=== PATIENT | male | born 2000 | race Caucasian/White ===

== ENCOUNTER 2022-08-13 04:23 | Emergency (ER) | payer OTHER ==
[2022-08-13 04:27] VITALS: RESP 18
[2022-08-13] MEDS ORDERED: PROCHLORPERAZINE 5 MG TAB PO STA (05:15)
[2022-08-13] MEDS ORDERED: ACETAMINOPHEN TAB 500 MG TAB PO STA (05:15)
[2022-08-13] MEDS ORDERED: AMOXIC-POT CLAV 875-125MG 1 EACH TAB PO STA (05:15)
[2022-08-13] MEDS ORDERED: IBUPROFEN 800 MG TAB PO STA (05:15)
--- NOTE | 2022-08-13 05:17 | ED ---
Headache HPI - General Chief Complaint: Headache Stated Complaint: Headache Time Seen by Provider: 08/13/22 05:05 Source: RN notes reviewed, old records reviewed Mode of arrival: ambulatory Limitations: no limitations - History of Present Illness Initial Comments: This is a 20-year-old male DF for evaluation patient comes in for severe headache headache that woke him from sleep, he was doing research and was concerned of cause of headache. Patient's headache is started today history of sinus illness no medical history takes no medications. No fevers. Patient has no modifying factors for headaches is not take any medication at home patient's brought in the ER as per mother he was having a panic attack secondary to his headache while he was at home. Patient states headache is mildly improved here in the ER no nausea vomiting, patient is able to move and turn his head in all directions MD Complaint: headache -: hour(s) Onset Description: gradual Location: right, left, frontal, occipital Severity: mild Severity scale (1-10): 4 Quality: aching, throbbing Consistency: intermittent Improves With: nothing Worsens With: none Context: occurred at rest Treatments Prior to Arrival: none - Related Data Allergies Allergy/AdvReac Type Severity Reaction Status Date / Time latex Allergy Rash/Hives Verified 08/13/22 04:26 Review of Systems ROS Statement: Those systems with pertinent positive or pertinent negative responses have been documented in the HPI. ROS Other: All systems not noted in ROS Statement are negative. Past Medical History Additional Past Medical History / Comment(s): Metabolic hx History of Any Multi-Drug Resistant Organisms: None Reported Past Surgical History: No Surgical Hx Reported Past Psychological History: No Psychological Hx Reported Smoking Status: Current every day smoker Past Alcohol Use History: Occasional Past Drug Use History: None Reported General Exam Limitations: no limitations General appearance: alert, in no apparent distress Head exam: Present: atraumatic, normocephalic, normal inspection Eye exam: Present: normal appearance, PERRL, EOMI. Absent: scleral icterus, conjunctival injection, periorbital swelling ENT exam: Present: normal exam, mucous membranes moist, other (Patient does have tenderness over sinuses) Neck exam: Present: normal inspection. Absent: tenderness, meningismus, lymphadenopathy Respiratory exam: Present: normal lung sounds bilaterally. Absent: respiratory distress, wheezes, rales, rhonchi, stridor Cardiovascular Exam: Present: regular rate, normal rhythm, normal heart sounds. Absent: systolic murmur, diastolic murmur, rubs, gallop, clicks GI/Abdominal exam: Present: soft, normal bowel sounds. Absent: distended, te nderness, guarding, rebound, rigid Extremities exam: Present: normal inspection, full ROM, normal capillary refill. Absent: tenderness, pedal edema, joint swelling, calf tenderness Back exam: Present: normal inspection Neurological exam: Present: alert, oriented X3, CN II-XII intact Psychiatric exam: Present: normal affect, normal mood Skin exam: Present: warm, dry, intact, normal color. Absent: rash Course Vital Signs 08/13/22 04:24 Temperature 97.4 F L Pulse Rate 87 Respiratory 18 Rate Blood Pressure 138/92 O2 Sat by Pulse 97 Oximetry - Reevaluation(s) Reevaluation #1: 08/13/22 05:44 Medical records reviewed Reevaluation #2: 08/13/22 05:44 Headache is improved Reevaluation #3: 08/13/22 05:44 Patient informed of results and questions answered Medical Decision Making - Medical Decision Making 22 male to the emergency department for evaluation patient coming in for evaluation of headache does appear to have sinus headache symptoms tenderness over sinuses and diffuseness of headache. Patient is in no acute distress can be discharged home - Radiology Data Radiology results: report reviewed (CT brain negative for acute disease), image reviewed Disposition Clinical Impression: Sinusitis, Sinus headache Disposition: HOME SELF-CARE Condition: Good Instructions (If sedation given, give patient instructions): Sinusitis (ED), Acute Headache (ED), Allergies (ED) Is patient prescribed a controlled substance at d/c from ED?: No Referrals: None,Stated [Primary Care Provider] - 1-2 days Time of Disposition: 05:45
--- NOTE | 2022-08-13 05:39 | CT ---
EXAMINATION TYPE: CT brain wo con DATE OF EXAM: 08/13/2022 COMPARISON: None HISTORY: HEADACHE CT DLP: 1138.9 mGycm Automated exposure control for dose reduction was used. Images obtained of the brain with no contrast. Ventricles and sulci appear normal. There is no mass effect or midline shift. No sign of intracranial hemorrhage. Calvarium is intact. No evidence of cerebral edema. There is normal aeration of the mast oid sinuses. IMPRESSION: Negative unenhanced head CT scan.
[2022-08-13 06:45] VITALS: BP 126/73; PULSE 63; TEMP 97.6
== END 2022-08-13 06:46 | disposition home or self-care (01) ==
LOC: EC 04:23
DX: J32.9 Chronic sinusitis, unspecified (principal); F17.200 Nicotine dependence, unspecified, uncomplicated; Z91.040 Latex allergy status
CPT/HCPCS: 70450; 99284; S0183

== ENCOUNTER 2022-08-14 13:10 | Emergency (ER) | payer OTHER ==
[2022-08-14] MEDS ORDERED: LIDOCAINE 5% PATCH TOPICAL STA (17:01)
[2022-08-14] MEDS ORDERED: KETOROLAC 15 MG/ML 1 ML VIAL IM STA (17:02)
[2022-08-14] MEDS ORDERED: methylPREDNISolone SOD SUCCI 125 MG/2 ML VIAL IM ONE (17:03)
[2022-08-14] MEDS ORDERED: CYCLOBENZAPRINE 5 MG TAB PO STA (17:03)
[2022-08-14] MEDS ORDERED: hydrOXYzine HCL 25 MG TAB PO STA (17:27)
[2022-08-14 18:01] VITALS: PULSE 72
--- NOTE | 2022-08-14 19:06 | ED ---
Neck Injury/Pain HPI - General Chief Complaint: Neck Pain/Injury Stated Complaint: neck pain Time Seen by Provider: 08/14/22 16:34 Mode of arrival: ambulatory Limitations: no limitations - History of Present Illness Initial Comments: This is a 22-year-old male who presents to the emergency department with a chief complaint of neck pain and headache. Patient woke up with the pain on Monday. Denies injury. Describes it as an aching. Pain is worse with movement of the neck both ways. He intermittently feels numbness in his fingers bilaterally as well as a "hot sensation in his arms." He has not taken anything for the pain. Patient presented in the emergency department yesterday for these complaints. CT brain without contrast was performed which was reviewed by me, negative for acute process. Patient reports no change in neck pain and headache. Does admit to nasal congestion. Denies fever, chills, cough, shortness of breath, chest pain, nausea, vomiting. Patient's mother did pull me aside and states the patient has been having issues with anxiety lately. Mother feels that numbness and hot flashes are related to panic attacks. Patient mother recently moved to the area and are waiting for first primary care appointment. Patient currently experiencing grief from the of his grandpa. I discussed this with patient in detail who does admit to anxiety. - Related Data Previous Rx's Medication Instructions Recorded Cyclobenzaprine [Flexeril] 5 mg PO HS PRN #10 tab 08/14/22 Ibuprofen [Motrin] 800 mg PO Q8H PRN #30 tab 08/14/22 Lidocaine 5% Patch [Lidoderm 5% 1 patch TOPICAL DAILY PRN #7 patch 08/14/22 Patch] hydrOXYzine HCL [Atarax] 25 mg PO BID PRN #28 tab 08/14/22 Allergies Allergy/AdvReac Type Severity Reaction Status Date / Time latex Allergy Rash/Hives Verified 08/14/22 13:25 Review of Systems ROS Statement: Those systems with pertinent positive or pertinent negative responses have been documented in the HPI. ROS Other: All systems not noted in ROS Statement are negative. Past Medical History Additional Past Medical History / Comment(s): Metabolic hx History of Any Multi-Drug Resistant Organisms: None Reported Past Surgical History: No Surgical Hx Reported Past Psychological History: No Psychological Hx Reported Smoking Status: Current every day smoker Past Alcohol Use History: Occasional Past Drug Use History: None Reported General Exam Limitations: no limitations General appearance: alert, in no apparent distress Head exam: Present: atraumatic, normocephalic, normal inspection Eye exam: Present: normal appearance, PERRL, EOMI. Absent: scleral icterus, conjunctival injection, periorbital swelling Neck exam: Present: normal inspection, tenderness (paravertebral), full ROM. Absent: meningismus, lymphadenopathy, thyromegaly Respiratory exam: Present: normal lung sounds bilaterally. Absent: respiratory distress, wheezes, rales, rhonchi, stridor Cardiovascular Exam: Present: regular rate, normal rhythm, normal heart sounds. Absent: systolic murmur, diastolic murmur, rubs, gallop, clicks Neurological exam: Present: alert, oriented X3, CN II-XII intact Psychiatric exam: Present: normal affect, anxious. Absent: normal mood Course Vital Signs 08/14/22 08/14/22 08/14/22 13:23 18:01 19:17 Temperature 98.9 F 98.3 F 98.1 F Pulse Rate 79 72 72 Respiratory 20 16 17 Rate Blood Pressure 142/78 134/92 128/72 O2 Sat by Pulse 97 99 98 Oximetry Medical Decision Making - Medical Decision Making This is a 22-year-old presenting with neck pain. Symptoms and physical exam consistent with musculoskeletal origin. Patient given Toradol, muscle relaxer, lidocaine patch. On reevaluation he reports very minimal pain. Patient feeling much better. I also discussed anxiety with patient in detail who was willing to trial hydroxyzine. This was given and provided anxiety relief. Patient does not have suicidal or homicidal ideation. He is not a threat to himself or others. He will be discharged with symptomatic medication for neck pain and hydroxyzine for anxiety. This should help him until he is able to see his new primary care provider. Patient currently living with mother who will watch him closely. Return parameters discussed. Dr. Garnett is my attending. - Lab Data Lab Results 08/14/22 08/14/22 Range/Units 17:52 17:52 Coronavirus (PCR) Not Detected (Not Detectd) Influenza Type A RNA Not Detected (Not Detectd) Influenza Type B (PCR) Not Detected (Not Detectd) Disposition Clinical Impression: Anxiety, Panic attack, Neck pain, Body aches Disposition: HOME SELF-CARE Condition: Good Instructions (If sedation given, give patient instructions): Panic Attack (ED), Acute Neck Pain (ED), Anxiolysis in Adults (ED) Additional Instructions: Take medication as directed. Please do not drink alcohol or operate machinery or taking Flexeril or hydroxyzine. Please establish care with a primary care provider as soon as possible. Return to the emergency department if you experience new, concerning, or worsening symptoms. Prescriptions: hydrOXYzine HCL [Atarax] 25 mg PO BID PRN #28 tab PRN Reason: Anxiety Cyclobenzaprine [Flexeril] 5 mg PO HS PRN #10 tab PRN Reason: Pain Lidocaine 5% Patch [Lidoderm 5% Patch] 1 patch TOPICAL DAILY PRN #7 patch PRN Reason: Pain Ibuprofen [Motrin] 800 mg PO Q8H PRN #30 tab PRN Reason: Pain Is patient prescribed a controlled substance at d/c from ED?: No Referrals: None,Stated [Primary Care Provider] - 1-2 days Time of Disposition: 19:06
[2022-08-14 19:18] VITALS: BP 128/72; RESP 17; TEMP 98.1
== END 2022-08-14 19:17 | disposition home or self-care (01) ==
LOC: EC 13:10
DX: F41.9 Anxiety disorder, unspecified (principal); F41.0 Panic disorder [episodic paroxysmal anxiety]; R52 Pain, unspecified; F17.200 Nicotine dependence, unspecified, uncomplicated; Z20.822 Contact with and (suspected) exposure to COVID-19; Z91.040 Latex allergy status
CPT/HCPCS: 87502; 87635; 99283; 96372 ×2; J2930; J1885

== ENCOUNTER 2023-02-11 15:31 | Emergency (ER) | payer OTHER ==
[2023-02-11 15:40] VITALS: TEMP 98
[2023-02-11] MEDS ORDERED: SODIUM CHLORIDE 0.9% 1,000 ML IV STA (16:25)
--- NOTE | 2023-02-11 16:55 | XR ---
EXAMINATION TYPE: XR chest 2V DATE OF EXAM: 02/11/2023 COMPARISON: NONE HISTORY: Chest pain TECHNIQUE: Frontal and lateral views of the chest are obtained. FINDINGS: There is no focal air space opacity. No evidence for pneumothorax. No pleural effusion. The cardiac silhouette size is within normal limits. The osseous structures are grossly intact. IMPRESSION: 1. No acute cardiopulmonary process.
[2023-02-11 17:02] LABS: Basophils % (A) 0 %; Eosinophils # (A) 0.1 k/uL (0-0.7); Eosinophils % (A) 1 %; HCT 37.8 % (39.0-53.0); HGB 13.2 gm/dL (13.0-17.5); Lymphocytes # (A) 0.9 k/uL (1.0-4.8); Lymphocytes % (A) 10 %; MCH 29.9 pg (25.0-35.0); MCV 85.4 fL (80.0-100.0); Mean Platelet Volume 8.9; Monocytes # (A) 0.4 k/uL (0-1.0); Monocytes % (A) 5 %; Neutrophils # (A) 7.3 k/uL (1.3-7.7); Neutrophils % (A) 82 %; Platelet Count 187 k/uL (150-450); RBC 4.43 m/uL (4.30-5.90); RDW 12.9 % (11.5-15.5); WBC 8.8 k/uL (3.8-10.6)
[2023-02-11 17:34] VITALS: BP 118/78; PULSE 97; RESP 18
[2023-02-11 17:36] LABS: ALT 58 U/L (4-49); African American GFR (CKD) >90 (>60 ml/min/1.73 sqM); Anion Gap 12 mmol/L; Blood Urea Nitrogen 14 mg/dL (9-20); Calcium 8.3 mg/dL (8.4-10.2); Carbon Dioxide 19 mmol/L (22-30); Chloride 108 mmol/L (98-107); Glucose 78 mg/dL (74-99); Non-African American GFR(CKD) >90 (>60 ml/min/1.73 sqM); Sodium 139 mmol/L (137-145); Total Bilirubin 1.2 mg/dL (0.2-1.3)
[2023-02-11 17:56] LABS: AST 58 U/L (17-59); Albumin 4.2 g/dL (3.5-5.0); Alkaline Phosphatase 92 U/L (38-126); Potassium 3.8 mmol/L (3.5-5.1)
--- NOTE | 2023-02-11 18:08 | ED ---
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 States that he has been outside all day in the sun without adequate hydration. He began feeling like he was going to pass out and EMS was called. They established an IV and gave him 750 mL of normal saline. Patient arrives and states that he is arty starting to feel improved. No chest pain or shortness of breath. No headache or visual changes. Admits nausea without vomiting. He denies abdominal pain. No other alleviating, precipitating or modifying factors - Related Data Previous Rx's Medication Instructions Recorded Cyclobenzaprine [Flexeril] 5 mg PO HS PRN #10 tab 08/14/22 Ibuprofen [Motrin] 800 mg PO Q8H PRN #30 tab 08/14/22 Lidocaine 5% Patch [Lidoderm 5% 1 patch TOPICAL DAILY PRN #7 patch 08/14/22 Patch] hydrOXYzine HCL [Atarax] 25 mg PO BID PRN #28 tab 08/14/22 Allergies Allergy/AdvReac Type Severity Reaction Status Date / Time latex Allergy Rash/Hives Verified 08/14/22 13:25 Review of Systems ROS Statement: Those systems with pertinent positive or pertinent negative responses have been documented in the HPI. ROS Other: All systems not noted in ROS Statement are negative. Past Medical History Additional Past Medical History / Comment(s): Metabolic hx History of Any Multi-Drug Resistant Organisms: None Reported Past Surgical History: No Surgical Hx Reported Past Psychological History: No Psychological Hx Reported Smoking Status: Current every day smoker Past Alcohol Use History: Occasional Past Drug Use History: None Reported General Exam Limitations: no limitations General appearance: alert, in no apparent distress Head exam: Present: atraumatic, normocephalic, normal inspection Eye exam: Present: normal appearance, PERRL, EOMI. Absent: scleral icterus, conjunctival injection, periorbital swelling ENT exam: Present: normal exam, mucous membranes moist Neck exam: Present: normal inspection. Absent: tenderness, meningismus, lymphadenopathy Respiratory exam: Present: normal lung sounds bilaterally. Absent: respiratory distress, wheezes, rales, rhonchi, stridor Cardiovascular Exam: Present: regular rate, normal rhythm, normal heart sounds. Absent: systolic murmur, diastolic murmur, rubs, gallop, clicks GI/Abdominal exam: Present: soft, normal bowel sounds. Absent: distended, tenderness, guarding, rebound, rigid Extremities exam: Present: normal inspection, full ROM, normal capillary refill. Absent: tenderness, pedal edema, joint swelling, calf tenderness Back exam: Present: normal inspection Neurological exam: Present: alert, oriented X3, CN II-XII intact Psychiatric exam: Present: normal affect, normal mood Skin exam: Present: warm, dry, intact, normal color. Absent: rash Course Vital Signs 02/11/23 02/11/23 15:35 17:33 Temperature 98 F Pulse Rate 87 97 Respiratory 22 18 Rate Blood Pressure 126/71 118/78 O2 Sat by Pulse 100 100 Oximetry Medical Decision Making - Medical Decision Making Was pt. sent in by a medical professional or institution ([facility] Chavez, HEAD BATCHER, urgent care, hospital, or [facility]...) When possible be specific @ -No Did you speak to anyone other than the patient for history (EMS, parent, family, police, friend...)? What history was obtained from this source @ -Patient's significant other at bedside to provide history Did you review nursing and triage notes (agree or disagree)? Why? @ -I reviewed and agree with nursing and triage notes Were old charts reviewed (outside hosp., previous admission, EMS record, old EKG, old radiological studies, urgent care reports/EKG's, [facility] records)? Report findings @ -No old charts were reviewed Differential Diagnosis (chest pain, altered mental status, abdominal pain women, abdominal pain men, vaginal bleeding, weakness, fever, dyspnea, syncope, he adache, dizziness, GI bleed, back pain, seizure, CVA, palpatations, mental health, musculoskeletal)? @ -Differential Syncope: Valvular disease, hypertrophic cardiomyopathy, pulmonary embolism, tamponade, tachycardia, bradycardia, [place], hypovolemia, hemorrhage, dissection, anemia, intracranial hemorrhage, seizure, hypoglycemia, carbon monoxide poisoning, this is not meant to be an all-inclusive list. EKG interpreted by me (3pts min.). @ -EKG interpreted demonstrates sinus rhythm with occasional PVCs. Rate of 79.OH interval 128. QRS 92. QTC of 431. No signs of Parkinson White or Brugada. No acute ST depression. There is some ST elevation in all leads consistent with J-point elevation X-rays interpreted by me (1pt min.). @ -Yes and demonstrates no acute intrathoracic process CT interpreted by me (1pt min.). @ -None done U/S interpreted by me (1pt. min.). @ -None done What testing was considered but not performed or refused? (CT, X-rays, U/S, labs)? Why? @ -None What meds were considered but not given or refused? Why? @ -None Did you discuss the management of the patient with other professionals (professionals i.e. , PA, HEAD BATCHER, lab, RT, psych nurse, social services director, barn hand, teacher, credit compliance officer, telehealth case manager)? Give summary @ -No Was smoking cessation discussed for >3mins.? @ -No Was critical care preformed (if so, how long)? @ -No Were there social determinants of health that impacted care today? How? (Homelessness, low income, unemployed, alcoholism, drug addiction, transportation, low edu. Level, literacy, decrease access to med. care, halfway, rehab)? @ -No Was there de-escalation of care discussed even if they declined (Discuss DNR or withdrawal of care, Hospice)? DNR status @ -No What co-morbidities impacted this encounter? (DM, HTN, Smoking, COPD, CAD, Cancer, CVA, ARF, Chemo, Hep., AIDS, mental health diagnosis, sleep apnea, morbid obesity)? @ -None Was patient admitted / discharged? Hospital course, mention meds given and route, prescriptions, significant lab abnormalities, going to OR and other pertinent info. @ -Upon arrival patient is placed in the hallway 11. A thorough history and physical exam is performed. IV access had been established by EMS. He is given another 2 L bolus of normal saline. Laboratory studies are conducted in the chest x-rays performed. Patient reevaluated and feels markedly improved at this time. He is able to sit and stand without feeling lightheaded. Patient will be discharged home and instructed to rest, increase fluid intake and stay out of the hot sun. Follow-up with his doctor in 2-4 days and return for any new or worsening symptoms. Patient was agreeable to this plan and was discharged home in stable condition Undiagnosed new problem with uncertain prognosis? @ -Yes Drug Therapy requiring intensive monitoring for toxicity (Heparin, Nitro, Insulin, Cardizem)? @ -No Were any procedures done? @ -No Diagnosis/symptom? @ -Presyncope, acute nausea, heat exhaustion Acute, or Chronic, or Acute on Chronic? @ -Acute Uncomplicated (without systemic symptoms) or Complicated (systemic symptoms)? @ -Complicated Side effects of treatment? @ -No Exacerbation, Progression, or Severe Exacerbation? @ -No Poses a threat to life or bodily function? How? (Chest pain, [place], NJ, pneumonia, PE, COPD, DKA, ARF, appy, cholecystitis, CVA, Diverticulitis, Homicidal, Suicidal, threat to staff... and all critical care pts) @ -No - Lab Data Result diagrams: 02/11/23 16:45 02/11/23 16:45 Lab Results 02/11/23 02/11/23 02/11/23 Range/Units 16:45 16:45 16:45 WBC 8.8 (3.8-10.6) k/uL RBC 4.43 (4.30-5.90) m/uL Hgb 13.2 (13.0-17.5) gm/dL Hct 37.8 L (39.0-53.0) % MCV 85.4 (80.0-100.0) fL MCH 29.9 (25.0-35.0) pg MCHC 35.0 (31.0-37.0) g/dL RDW 12.9 (11.5-15.5) % Plt Count 187 (150-450) k/uL MPV 8.9 Neutrophils % 82 % Lymphocytes % 10 % Monocytes % 5 % Eosinophils % 1 % Basophils % 0 % Neutrophils # 7.3 (1.3-7.7) k/uL Lymphocytes # 0.9 L (1.0-4.8) k/uL Monocytes # 0.4 (0-1.0) k/uL Eosinophils # 0.1 (0-0.7) k/uL Basophils # 0.0 (0-0.2) k/uL Sodium 139 (137-145) mmol/L Potassium 3.8 (3.5-5.1) mmol/L Chloride 108 H (98-107) mmol/L Carbon Dioxide 19 L (22-30) mmol/L Anion Gap 12 mmol/L BUN 14 (9-20) mg/dL Creatinine 0.66 (0.66-1.25) mg/dL Est GFR (CKD-EPI)AfAm >90 (>60 ml/min/1.73 sqM) Est GFR (CKD-EPI)NonAf >90 (>60 ml/min/1.73 sqM) Glucose 78 (74-99) mg/dL Calcium 8.3 L (8.4-10.2) mg/dL Total Bilirubin 1.2 (0.2-1.3) mg/dL AST 58 (17-59) U/L ALT 58 H (4-49) U/L Alkaline Phosphatase 92 (38-126) U/L Troponin I <0.012 (0.000-0.034) ng/mL Total Protein 7.0 (6.3-8.2) g/dL Albumin 4.2 (3.5-5.0) g/dL Disposition Clinical Impression: Heat exhaustion Disposition: HOME SELF-CARE Condition: Stable Instructions (If sedation given, give patient instructions): Heat Exhaustion (ED) Additional Instructions: Please follow-up with your doctor and return for any new or worsening symptoms Is patient prescribed a controlled substance at d/c from ED?: No Referrals: Prieto Sykes MD [Primary Care Provider] - 1-2 days Time of Disposition: 18:08
== END 2023-02-11 18:43 | disposition home or self-care (01) ==
LOC: EC 15:31
DX: T67.5XXA Heat exhaustion, unspecified, initial encounter (principal); F17.200 Nicotine dependence, unspecified, uncomplicated; Z91.040 Latex allergy status; X30.XXXA Exposure to excessive natural heat, initial encounter
CPT/HCPCS: 36415; 71046; 80053; 84484; 85025; 93005; 96360; 99285

== ENCOUNTER 2023-08-28 19:40 | Emergency (ER) | payer OTHER ==
[2023-08-28 19:54] VITALS: RESP 18
--- NOTE | 2023-08-28 20:05 | ED ---
General Adult HPI - General Chief complaint: Upper Respiratory Infection Stated complaint: Chest Pain,Sob,Dizziness Time Seen by Provider: 08/28/23 20:04 Source: patient, family, RN notes reviewed Mode of arrival: wheelchair Limitations: no limitations - History of Present Illness Initial comments: 23-year-old male presents emergency Department with chief complaint of multiple complaints. Patient states his been having worsening symptoms he did see his PCP in which they recommended him to follow urology. Patient states he has chest pain shortness breath and some dizziness. Patient states she does have mild congestion but feels like it's more than just an upper respiratory infection. - Related Data Previous Rx's Medication Instructions Recorded Cyclobenzaprine [Flexeril] 5 mg PO HS PRN #10 tab 08/14/22 Ibuprofen [Motrin] 800 mg PO Q8H PRN #30 tab 08/14/22 Lidocaine 5% Patch [Lidoderm 5% 1 patch TOPICAL DAILY PRN #7 patch 08/14/22 Patch] hydrOXYzine HCL [Atarax] 25 mg PO BID PRN #28 tab 08/14/22 Allergies Allergy/AdvReac Type Severity Reaction Status Date / Time latex Allergy Rash/Hives Verified 08/14/22 13:25 Review of Systems ROS Statement: Those systems with pertinent positive or pertinent negative responses have been documented in the HPI. ROS Other: All systems not noted in ROS Statement are negative. Past Medical History Additional Past Medical History / Comment(s): Metabolic hx History of Any Multi-Drug Resistant Organisms: None Reported Past Surgical History: No Surgical Hx Reported Past Psychological History: No Psychological Hx Reported Smoking Status: Current every day smoker Past Alcohol Use History: Occasional Past Drug Use History: None Reported General Exam - General Exam Comments Initial Comments: Visual Physical Exam Vital signs reviewed General: Well-appearing, nontoxic, no acute distress. Head: Normocephalic, atraumatic Eyes: PERRLA, EOMI ENT: Airway patent Chest: Nonlabored breathing Skin: No visual rash, normal skin tone Neuro: Alert and oriented 3 Musculoskeletal: No gross abnormalities Limitations: no limitations Course Vital Signs 08/28/23 08/28/23 19:46 20:43 Temperature 98.7 F Pulse Rate 77 Respiratory 18 18 Rate Blood Pressure 149/93 O2 Sat by Pulse 99 Oximetry Medical Decision Making - Medical Decision Making I completed the quick note portion of this chart signed Néstor Mueller PA-C Was pt. sent in by a medical professional or institution (SHAYNA Chavez, NAIL ARTIST, urgent care, hospital, or snf...) When possible be specific @ -No Did you speak to anyone other than the patient for history (EMS, parent, family, police, friend...)? What history was obtained from this source @ -No Did you review nursing and triage notes (agree or disagree)? Why? @ -I reviewed and agree with nursing and triage notes Were old charts reviewed (outside hosp., previous admission, EMS record, old EKG, old radiological studies, urgent care reports/EKG's, snf records)? Report findings @ -No old charts were reviewed Differential Diagnosis (chest pain, altered mental status, abdominal pain women, abdominal pain men, vaginal bleeding, weakness, fever, dyspnea, syncope, headache, dizziness, GI bleed, back pain, seizure, CVA, palpatations, mental health, musculoskeletal)? @ -[Differential Dyspnea: Coronary syndrome, arrhythmia, tamponade, asthma, COPD, pulmonary embolism, pneumonia, pneumothorax, pulmonary effusion, anaphylaxis, diabetic ketoacidosis, flailed chest, pulmonary contusion, diaphragmatic rupture, anemia, neuromuscular, this is not meant to be an all-inclusive list. EKG interpreted by me (3pts min.). @ -As above X-rays interpreted by me (1pt min.). @ -Chest x-ray shows no acute process CT interpreted by me (1pt min.). @ -None done U/S interpreted by me (1pt. min.). @ -None done What testing was considered but not performed or refused? (CT, X-rays, U/S, labs)? Why? @ -None What meds were considered but not given or refused? Why? @ -None Did you discuss the management of the patient with other professionals (professionals i.e. SHAYNA Chavez, NAIL ARTIST, lab, RT, psych nurse, social work coordinator, wardrobe specialty worker, teacher, international first officer, case management coordinator)? Give summary @ -No Was smoking cessation discussed for >3mins.? @ -No Was critical care preformed (if so, how long)? @ -No Were there social determinants of health that impacted care today? How? (Homelessness, low income, unemployed, alcoholism, drug addiction, transportation, low edu. Level, literacy, decrease access to med. care, long-term, rehab)? @ -No Was there de-escalation of care discussed even if they declined (Discuss DNR or withdrawal of care, Hospice)? DNR status @ -No What co-morbidities impacted this encounter? (DM, HTN, Smoking, COPD, CAD, Cancer, CVA, ARF, Chemo, Hep., AIDS, mental health diagnosis, sleep apnea, morbid obesity)? @ -None Was patient admitted / discharged? Hospital course, mention meds given and route, prescriptions, significant lab abnormalities, going to OR and other pertinent info. @ -[Discharge patient has been having ongoing symptoms. Patient had increased shortness breath 4 days ago. Patient is positive for COVID-19. Patient will be discharged in stable condition return parameters were discussed. Patient advised to follow-up neurology. Undiagnosed new problem with uncertain prognosis? @ -No Drug Therapy requiring intensive monitoring for toxicity (Heparin, Nitro, Insulin, Cardizem)? @ -No Were any procedures done? @ -No Diagnosis/symptom? @ -COVID-19 Acute, or Chronic, or Acute on Chronic? @ -Acute Uncomplicated (without systemic symptoms) or Complicated (systemic symptoms)? @ -Uncomplicated Side effects of treatment? @ -No Exacerbation, Progression, or Severe Exacerbation? @ -No Poses a threat to life or bodily function? How? (Chest pain, [place], [place], pneumonia, PE, COPD, DKA, ARF, appy, cholecystitis, CVA, Diverticulitis, Homicidal, Suicidal, threat to staff... and all critical care pts) @ -No - Lab Data Result diagrams: 08/28/23 20:37 08/28/23 20:37 Lab Results 08/28/23 08/28/23 08/28/23 Range/Units 19:51 19:51 20:37 WBC 5.4 (3.8-10.6) k/uL RBC 5.13 (4.30-5.90) m/uL Hgb 15.1 (13.0-17.5) gm/dL Hct 43.2 (39.0-53.0) % MCV 84.2 (80.0-100.0) fL MCH 29.4 (25.0-35.0) pg MCHC 35.0 (31.0-37.0) g/dL RDW 12.5 (11.5-15.5) % Plt Count 164 (150-450) k/uL MPV 8.5 Neutrophils % 70 % Lymphocytes % 22 % Monocytes % 5 % Eosinophils % 2 % Basophils % 1 % Neutrophils # 3.8 (1.3-7.7) k/uL Lymphocytes # 1.2 (1.0-4.8) k/uL Monocytes # 0.3 (0-1.0) k/uL Eosinophils # 0.1 (0-0.7) k/uL Basophils # 0.0 (0-0.2) k/uL D-Dimer (<0.60) mg/L FEU Sodium (137-145) mmol/L Potassium (3.5-5.1) mmol/L Chloride (98-107) mmol/L Carbon Dioxide (22-30) mmol/L Anion Gap mmol/L BUN (9-20) mg/dL Creatinine (0.66-1.25) mg/dL Est GFR (CKD-EPI)AfAm (>60 ml/min/1.73 sqM) Est GFR (CKD-EPI)NonAf (>60 ml/min/1.73 sqM) Glucose (74-99) mg/dL Calcium (8.4-10.2) mg/dL Total Bilirubin (0.2-1.3) mg/dL AST (17-59) U/L ALT (4-49) U/L Alkaline Phosphatase (38-126) U/L Total Protein (6.3-8.2) g/dL Albumin (3.5-5.0) g/dL Influenza Type A (PCR) Not Detected (Not Detectd) Influenza Type B (PCR) Not Detected (Not Detectd) RSV (PCR) Not Detected (Not Detectd) SARS-CoV-2 (PCR) Detected A (Not Detectd) Group A Strep (PCR) NOT DETECTED (Not Detectd) 08/28/23 08/28/23 Range/Units 20:37 20:37 WBC (3.8-10.6) k/uL RBC (4.30-5.90) m/uL Hgb (13.0-17.5) gm/dL Hct (39.0-53.0) % MCV (80.0-100.0) fL MCH (25.0-35.0) pg MCHC (31.0-37.0) g/dL RDW (11.5-15.5) % Plt Count (150-450) k/uL MPV Neutrophils % % Lymphocytes % % Monocytes % % Eosinophils % % Basophils % % Neutrophils # (1.3-7.7) k/uL Lymphocytes # (1.0-4.8) k/uL Monocytes # (0-1.0) k/uL Eosinophils # (0-0.7) k/uL Basophils # (0-0.2) k/uL D-Dimer 0.33 (<0.60) mg/L FEU Sodium 138 (137-145) mmol/L Potassium 3.7 (3.5-5.1) mmol/L Chloride 102 (98-107) mmol/L Carbon Dioxide 24 (22-30) mmol/L Anion Gap 12 mmol/L BUN 10 (9-20) mg/dL Creatinine 0.65 L (0.66-1.25) mg/dL Est GFR (CKD-EPI)AfAm >90 (>60 ml/min/1.73 sqM) Est GFR (CKD-EPI)NonAf >90 (>60 ml/min/1.73 sqM) Glucose 107 H (74-99) mg/dL Calcium 9.2 (8.4-10.2) mg/dL Total Bilirubin 0.7 (0.2-1.3) mg/dL AST 29 (17-59) U/L ALT 22 (4-49) U/L Alkaline Phosphatase 75 (38-126) U/L Total Protein 7.6 (6.3-8.2) g/dL Albumin 4.6 (3.5-5.0) g/dL Influenza Type A (PCR) (Not Detectd) Influenza Type B (PCR) (Not Detectd) RSV (PCR) (Not Detectd) SARS-CoV-2 (PCR) (Not Detectd) Group A Strep (PCR) (Not Detectd) Disposition Clinical Impression: COVID-19 Disposition: HOME SELF-CARE Condition: Stable Instructions (If sedation given, give patient instructions): COVID-19 (Coronavirus Disease 2019) (ED) Additional Instructions: Please return to the Emergency Department if symptoms worsen or any other concerns. Is patient prescribed a controlled substance at d/c from ED?: No Referrals: Prieto Sykes MD [Primary Care Provider] - 1-2 days Time of Disposition: 21:06
[2023-08-28 20:45] LABS: Basophils % (A) 1 %; Eosinophils # (A) 0.1 k/uL (0-0.7); Eosinophils % (A) 2 %; HCT 43.2 % (39.0-53.0); HGB 15.1 gm/dL (13.0-17.5); Lymphocytes # (A) 1.2 k/uL (1.0-4.8); Lymphocytes % (A) 22 %; MCH 29.4 pg (25.0-35.0); MCV 84.2 fL (80.0-100.0); Mean Platelet Volume 8.5; Monocytes # (A) 0.3 k/uL (0-1.0); Monocytes % (A) 5 %; Neutrophils # (A) 3.8 k/uL (1.3-7.7); Neutrophils % (A) 70 %; Platelet Count 164 k/uL (150-450); RBC 5.13 m/uL (4.30-5.90); RDW 12.5 % (11.5-15.5); WBC 5.4 k/uL (3.8-10.6)
[2023-08-28 20:57] LABS: ALT 22 U/L (4-49); AST 29 U/L (17-59); African American GFR (CKD) >90 (>60 ml/min/1.73 sqM); Albumin 4.6 g/dL (3.5-5.0); Alkaline Phosphatase 75 U/L (38-126); Anion Gap 12 mmol/L; Blood Urea Nitrogen 10 mg/dL (9-20); Calcium 9.2 mg/dL (8.4-10.2); Carbon Dioxide 24 mmol/L (22-30); Chloride 102 mmol/L (98-107); Glucose 107 mg/dL (74-99); Non-African American GFR(CKD) >90 (>60 ml/min/1.73 sqM); Potassium 3.7 mmol/L (3.5-5.1); Sodium 138 mmol/L (137-145); Total Bilirubin 0.7 mg/dL (0.2-1.3); Total Protein 7.6 g/dL (6.3-8.2)
[2023-08-28 21:53] VITALS: BP 131/89; PULSE 64; TEMP 98.2
--- NOTE | 2023-08-28 23:55 | XR ---
EXAMINATION TYPE: XR chest 2V DATE OF EXAM: 08/28/2023 8:08 PM CLINICAL INDICATION:Male, 23 years old with history of congestion; [facility] COMPARISON: 02/11/2023 TECHNIQUE: XR chest 2V. Frontal PA and lateral views of the chest. FINDINGS: Lines/Tubes: None. Heart/mediastinum: Cardiomediastinal silhouette is stable. Heart size is upper normal. Mediastinum appears normal. Pulmonary vascularity: Not increased, Lungs/Pleura: There is no evidence of pleural effusion, focal consolidation, or pneumothorax. Musculoskeletal: No acute osseous abnormality demonstrated in the limits of the exam. Mild degenerat bacilio changes. Other findings: None. IMPRESSION: No acute cardiopulmonary abnormality.
== END 2023-08-28 21:31 | disposition home or self-care (01) ==
LOC: EC 19:40
DX: U07.1 COVID-19 (principal); F17.200 Nicotine dependence, unspecified, uncomplicated; Z91.040 Latex allergy status
CPT/HCPCS: 36415; 71046; 80053; 85025; 85379; 87636; 87651; 93005; 99285

== ENCOUNTER 2023-12-25 15:08 | Emergency (ER) | payer OTHER ==
[2023-12-25 15:31] VITALS: RESP 18
--- NOTE | 2023-12-25 15:34 | ED ---
Abdominal Pain HPI - General Chief Complaint: Abdominal Pain Stated Complaint: Abd pain Time Seen by Provider: 12/25/23 15:22 Source: patient, RN notes reviewed Mode of arrival: ambulatory Limitations: no limitations - History of Present Illness Initial Comments: This is a 23-year-old male who presents to the emergency department for abdominal pain. States that earlier today he was sitting at his computer when he developed pain in the right lower quadrant. Pain was initially sharp but is now more so dull, but states that it is not getting any better. Denies any fever/chills, nausea/vomiting, or diarrhea/constipation. Also denies any history of similar symptoms in the past. MD Complaint: abdominal pain - Related Data Previous Rx's Medication Instructions Recorded Cyclobenzaprine [Flexeril] 5 mg PO HS PRN #10 tab 08/14/22 Ibuprofen [Motrin] 800 mg PO Q8H PRN #30 tab 08/14/22 Lidocaine 5% Patch [Lidoderm 5% 1 patch TOPICAL DAILY PRN #7 patch 08/14/22 Patch] hydrOXYzine HCL [Atarax] 25 mg PO BID PRN #28 tab 08/14/22 Allergies Allergy/AdvReac Type Severity Reaction Status Date / Time latex Allergy Mild Rash/Hives Verified 12/25/23 15:15 Review of Systems ROS Statement: Those systems with pertinent positive or pertinent negative responses have been documented in the HPI. ROS Other: All systems not noted in ROS Statement are negative. Past Medical History Additional Past Medical History / Comment(s): Metabolic hx History of Any Multi-Drug Resistant Organisms: None Reported Past Surgical History: No Surgical Hx Reported Past Psychological History: No Psychological Hx Reported Smoking Status: Current every day smoker Past Alcohol Use History: Occasional Past Drug Use History: None Reported General Exam Limitations: no limitations General appearance: alert, in no apparent distress Head exam: Present: atraumatic, normocephalic, normal inspection Respiratory exam: Present: normal lung sounds bilaterally. Absent: respiratory distress, wheezes, rales, rhonchi, stridor Cardiovascular Exam: Present: regular rate, normal rhythm, normal heart sounds. Absent: systolic murmur, diastolic murmur, rubs, gallop, clicks GI/Abdominal exam: Present: soft, tenderness (RLQ), normal bowel sounds. A bsent: distended, guarding, rebound, rigid Neurological exam: Present: alert, oriented X3, CN II-XII intact Psychiatric exam: Present: normal affect, normal mood Skin exam: Present: warm, dry, intact, normal color. Absent: rash Course Vital Signs 12/25/23 12/25/23 15:13 17:48 Temperature 98.4 F 98.1 F Pulse Rate 73 68 Respiratory 18 18 Rate Blood Pressure 137/92 133/78 O2 Sat by Pulse 100 100 Oximetry Medical Decision Making - Medical Decision Making This is a 23 year old male who presents to the emergency department for abdominal pain. Was pt. sent in by a medical professional or institution? @ -No Did you speak to anyone other than the patient for history? @ -No Did you review nursing and triage notes? @ -Yes, and I agree, it is accurate with regards to the patient's symptoms. Were old charts reviewed? @ -No Differential Diagnosis? @ -Differential Abdominal Pain Men: Appendicitis, cholecystitis, diverticulosis, ischemic bowel, pancreatitis, hepatitis, UTI, gastroenteritis, AAA, incarcerated hernia, bowel obstruction, constipation, inflammatory bowel, hepatitis, peptic ulcer disease, splenic infarction, perforated viscus, testicular torsion, this is not meant to be an all-inclusive list EKG interpreted by me (3pts min.)? @ -Not obtained X-rays interpreted by me (1pt min.)? @ -Not obtained CT interpreted by me (1pt min.)? @ -CT scan of the abdomen and pelvis obtained. My interpretation identifies no evidence of bowel wall thickening or free air. U/S interpreted by me (1pt. min.)? @ -Not obtained What testing was considered but not performed? (CT, X-rays, U/S, labs)? Why? @ -None What meds were considered but not given? Why? @ -None Did you discuss the management of the patient with other professionals? @ -No Did you reconcile home meds? @ -No Was smoking cessation discussed for >3mins.? @ -No Was critical care preformed (if so, how long)? @ -No Were there social determinants of health that impacted care today? How? (Homelessness, low income, unemployed, alcoholism, drug addiction, transportation, low edu. Level, literacy, decrease access to med. care, shelter, rehab)? @ -No Was there de-escalation of care discussed even if they declined? (Discuss DNR or withdrawal of care, Hospice)? @ -No What co-morbidities impacted this encounter? (DM, HTN, Smoking, COPD, CAD, Cancer, CVA, Hep., AIDS, mental health diagnosis, sleep apnea, morbid obesity)? @ -None Was patient admitted / discharged? @ -Discharged. Lab work unremarkable. CT scan of the abdomen and pelvis obta ined revealing hazy borders around the urinary bladder and the advised correlation for cystitis. The appendix appears normal and there were no other acute processes identified. Urinalysis negative for signs of infection. Pain controlled in the emergency department. Advised ibuprofen and Tylenol as needed for pain relief. Patient discharged home in stable condition and advised to follow-up with his primary care provider. Undiagnosed new problem with uncertain prognosis? @ -None Drug Therapy requiring intensive monitoring for toxicity (Heparin, Nitro, Insulin, Cardizem)? @ -None Were any procedures done? @ -None Diagnosis/symptom? @ -Abdominal pain Acute, or Chronic, or Acute on Chronic? @ -Acute Uncomplicated (without systemic symptoms) or Complicated (systemic symptoms)? @ -Uncomplicated Side effects of treatment? @ -None Exacerbation, Progression, or Severe Exacerbation] @ -Not applicable Poses a threat to life or bodily function? @ -No Return precautions reviewed in depth, the patient is instructed to return to the emergency department with any new, worsening, or concerning symptoms. Patient verbalized understanding. This case was discussed in detail with the attending ED physician, Dr. Holden. Presentation, findings, and treatment plan discussed in detail as well. - Lab Data Result diagrams: 12/25/23 16:15 12/25/23 16:15 Lab Results 12/25/23 12/25/23 12/25/23 Range/Units 16:15 16:15 16:15 WBC 6.3 (3.8-10.6) k/uL RBC 5.10 (4.30-5.90) m/uL Hgb 15.1 (13.0-17.5) gm/dL Hct 44.1 (39.0-53.0) % MCV 86.6 (80.0-100.0) fL MCH 29.6 (25.0-35.0) pg MCHC 34.2 (31.0-37.0) g/dL RDW 12.2 (11.5-15.5) % Plt Count 196 (150-450) k/uL MPV 8.2 Neutrophils % 71 % Lymphocytes % 19 % Monocytes % 5 % Eosinophils % 3 % Basophils % 1 % Neutrophils # 4.5 (1.3-7.7) k/uL Lymphocytes # 1.2 (1.0-4.8) k/uL Monocytes # 0.3 (0-1.0) k/uL Eosinophils # 0.2 (0-0.7) k/uL Basophils # 0.0 (0-0.2) k/uL Sodium 141 (137-145) mmol/L Potassium 3.9 (3.5-5.1) mmol/L Chloride 106 (98-107) mmol/L Carbon Dioxide 25 (22-30) mmol/L Anion Gap 10 mmol/L BUN 15 (9-20) mg/dL Creatinine 0.69 (0.66-1.25) mg/dL Est GFR (CKD-EPI)AfAm >90 (>60 ml/min/1.73 sqM) Est GFR (CKD-EPI)NonAf >90 (>60 ml/min/1.73 sqM) Glucose 82 (74-99) mg/dL Plasma Lactic Acid Delfino 0.7 (0.7-2.0) mmol/L Calcium 9.3 (8.4-10.2) mg/dL Total Bilirubin 0.5 (0.2-1.3) mg/dL AST 25 (17-59) U/L ALT 21 (4-49) U/L Alkaline Phosphatase 94 (38-126) U/L Total Protein 7.6 (6.3-8.2) g/dL Albumin 4.5 (3.5-5.0) g/dL Amylase 49 (30-110) U/L Lipase 47 (23-300) U/L Urine Color Urine Appearance (Clear) Urine pH (5.0-8.0) Ur Specific [place] (1.001-1.035) Urine Protein (Negative) Urine Glucose (UA) (Negative) Urine Ketones (Negative) Urine Blood (Negative) Urine Nitrite (Negative) Urine Bilirubin (Negative) Urine Urobilinogen (<2.0) mg/dL Ur Leukocyte Esterase (Negative) 12/25/23 Range/Units 17:15 WBC (3.8-10.6) k/uL RBC (4.30-5.90) m/uL Hgb (13.0-17.5) gm/dL Hct (39.0-53.0) % MCV (80.0-100.0) fL MCH (25.0-35.0) pg MCHC (31.0-37.0) g/dL RDW (11.5-15.5) % Plt Count (150-450) k/uL MPV Neutrophils % % Lymphocytes % % Monocytes % % Eosinophils % % Basophils % % Neutrophils # (1.3-7.7) k/uL Lymphocytes # (1.0-4.8) k/uL Monocytes # (0-1.0) k/uL Eosinophils # (0-0.7) k/uL Basophils # (0-0.2) k/uL Sodium (137-145) mmol/L Potassium (3.5-5.1) mmol/L Chloride (98-107) mmol/L Carbon Dioxide (22-30) mmol/L Anion Gap mmol/L BUN (9-20) mg/dL Creatinine (0.66-1.25) mg/dL Est GFR (CKD-EPI)AfAm (>60 ml/min/1.73 sqM) Est GFR (CKD-EPI)NonAf (>60 ml/min/1.73 sqM) Glucose (74-99) mg/dL Plasma Lactic Acid Delfino (0.7-2.0) mmol/L Calcium (8.4-10.2) mg/dL Total Bilirubin (0.2-1.3) mg/dL AST (17-59) U/L ALT (4-49) U/L Alkaline Phosphatase (38-126) U/L Total Protein (6.3-8.2) g/dL Albumin (3.5-5.0) g/dL Amylase (30-110) U/L Lipase (23-300) U/L Urine Color Colorless Urine Appearance Clear (Clear) Urine pH 7.0 (5.0-8.0) Ur Specific [place] 1.010 (1.001-1.035) Urine Protein Negative (Negative) Urine Glucose (UA) Negative (Negative) Urine Ketones Negative (Negative) Urine Blood Negative (Negative) Urine Nitrite Negative (Negative) Urine Bilirubin Negative (Negative) Urine Urobilinogen <2.0 (<2.0) mg/dL Ur Leukocyte Esterase Negative (Negative) - Radiology Data Radiology results: report reviewed, image reviewed Disposition Clinical Impression: Abdominal pain Disposition: HOME SELF-CARE Instructions (If sedation given, give patient instructions): Abdominal Pain ( ED) Additional Instructions: Return to the emergency department with any new, worsening, or concerning symptoms. Alternate with ibuprofen and Tylenol as needed for pain relief. Follow up with your primary care provider in 1-2 days. Is patient prescribed a controlled substance at d/c from ED?: No Referrals: Prieto Sykes DO [Primary Care Provider] - 1-2 days Time of Disposition: 17:24
[2023-12-25] MEDS: SODIUM CHLORIDE 0.9% 1,000 ML IV STA (16:19)
[2023-12-25 16:27] LABS: Basophils % (A) 1 %; Eosinophils # (A) 0.2 k/uL (0-0.7); Eosinophils % (A) 3 %; HCT 44.1 % (39.0-53.0); HGB 15.1 gm/dL (13.0-17.5); Lymphocytes # (A) 1.2 k/uL (1.0-4.8); Lymphocytes % (A) 19 %; MCH 29.6 pg (25.0-35.0); MCHC 34.2 g/dL (31.0-37.0); MCV 86.6 fL (80.0-100.0); Mean Platelet Volume 8.2; Monocytes # (A) 0.3 k/uL (0-1.0); Monocytes % (A) 5 %; Neutrophils # (A) 4.5 k/uL (1.3-7.7); Neutrophils % (A) 71 %; Platelet Count 196 k/uL (150-450); RDW 12.2 % (11.5-15.5); WBC 6.3 k/uL (3.8-10.6)
[2023-12-25] MEDS: KETOROLAC 15 MG/ML 1 ML VIAL IVP STA (16:30)
--- NOTE | 2023-12-25 17:10 | CT ---
EXAMINATION TYPE: CT abdomen pelvis w con CT DLP: 1269.8 mGycm, Automated exposure control for dose reduction was used. DATE OF EXAM: 12/25/2023 5:01 PM COMPARISON: None CLINICAL INDICATION:Male, 23 years old with history of RLQ abdominal pain; RLQ abdominal pain TECHNIQUE: Axial CT abdomen pelvis w con;Sagittal and coronal reformats were created on a separate w orkstation. Contrast used:100ml mL of Isovue 300 with IV Contrast, (none if empty) Oral contrast used: without Oral Contrast (none if empty) FINDINGS: LOWER CHEST: Unremarkable ABDOMEN LIVER: Unremarkable GALLBLADDER AND BILE DUCTS: Unremarkable. PANCREAS: Unremarkable. SPLEEN: Unremarkable. ADRENAL GLANDS: Unremarkable. KIDNEYS AND URETERS: No evidence of hydronephrosis or renal calculus. The ureters are unremarkable. PELVIS BLADDER: Incomplete distention of the urinary bladder with hazy borders. REPRODUCTIVE: Tortuous vessels in the scrotum bilaterally ABDOMEN & PELVIS STOMACH AND BOWEL: No evidence of bowel obstruction. The appendix is normal. PERITONEUM/RETROPERITONEUM: No evidence of pneumoperitoneum or free fluid. VASCULATURE: No evidence of aortic aneurysm. MUSCULOSKELETAL: No acute osseous abnormalities LYMPH NODES: No gross evidence for lymphadenopathy. SOFT TISSUE/ABDOMINAL WALL: Unremarkable IMPRESSION: 1. Hazy borders around the urinary bladder correlate with urinalysis for cystitis. 2. The appendix is normal. No obstructive uropathy or renal calculus. 3. Findings suggesting varicoceles bilaterally.
[2023-12-25 17:18] LABS: ALT 21 U/L (4-49); AST 25 U/L (17-59); African American GFR (CKD) >90 (>60 ml/min/1.73 sqM); Albumin 4.5 g/dL (3.5-5.0); Alkaline Phosphatase 94 U/L (38-126); Amylase 49 U/L (30-110); Anion Gap 10 mmol/L; Blood Urea Nitrogen 15 mg/dL (9-20); Calcium 9.3 mg/dL (8.4-10.2); Carbon Dioxide 25 mmol/L (22-30); Chloride 106 mmol/L (98-107); Glucose 82 mg/dL (74-99); Lipase 47 U/L (23-300); Non-African American GFR(CKD) >90 (>60 ml/min/1.73 sqM); Potassium 3.9 mmol/L (3.5-5.1); Sodium 141 mmol/L (137-145); Total Bilirubin 0.5 mg/dL (0.2-1.3); Total Protein 7.6 g/dL (6.3-8.2)
[2023-12-25 17:21] LABS: Appearance,Urine Clear (Clear); Bilirubin,Urine Negative (Negative); Blood,Urine Negative (Negative); Color,Urine Colorless; Glucose,Urine (UA) Negative (Negative); Ketones,Urine Negative (Negative); Leukocyte Esterase,Urine Negative (Negative); Nitrite,Urine Negative (Negative); Protein,Urine Negative (Negative); Urobilinogen,Urine <2.0 mg/dL (<2.0)
[2023-12-25 18:07] VITALS: BP 133/78; PULSE 68; TEMP 98.1
== END 2023-12-25 17:50 | disposition home or self-care (01) ==
LOC: EC 15:08
DX: R10.31 Right lower quadrant pain (principal); F17.200 Nicotine dependence, unspecified, uncomplicated; Z91.040 Latex allergy status
CPT/HCPCS: 36415; 80053; 82150; 83605; 83690; 85025; 81003; 74177; 99284; 96374; 96361; J1885; Q9967

== ENCOUNTER 2023-12-27 16:55 | Emergency (ER) | payer OTHER ==
--- NOTE | 2023-12-27 18:11 | ED ---
General Adult HPI - General Chief complaint: Eye Problems Stated complaint: Headache/tingly face Time Seen by Provider: 12/27/23 17:22 Source: patient, family, RN notes reviewed Mode of arrival: ambulatory Limitations: no limitations - History of Present Illness Initial comments: 23-year-old male presents to the emergency department for evaluation of right posterior eye pain. He states that this has been going on for months. He notes that it is fairly constant. He does get some relief with ibuprofen and his muscle relaxer. He has experienced this in the past and was on eyedrops. He states that this pain had resolved for a few years but came back over the past 2 to 3 months. He denies any known triggers. Denies pain with eye movements. De nies vision changes. He does have a prescription for glasses but he states that he lost his glasses recently and has not received his new pair yet. He does state that he saw an online services manager for a new prescription for his eyeglasses about 2 weeks ago. He was having the symptoms at this time. He states that they did not provide any treatment for him at that time. - Related Data Previous Rx's Medication Instructions Recorded Cyclobenzaprine [Flexeril] 5 mg PO HS PRN #10 tab 08/14/22 Ibuprofen [Motrin] 800 mg PO Q8H PRN #30 tab 08/14/22 Lidocaine 5% Patch [Lidoderm 5% 1 patch TOPICAL DAILY PRN #7 patch 08/14/22 Patch] hydrOXYzine HCL [Atarax] 25 mg PO BID PRN #28 tab 08/14/22 Allergies Allergy/AdvReac Type Severity Reaction Status Date / Time latex Allergy Mild Rash/Hives Verified 12/25/23 15:15 Review of Systems ROS Statement: Those systems with pertinent positive or pertinent negative responses have been documented in the HPI. ROS Other: All systems not noted in ROS Statement are negative. Past Medical History Additional Past Medical History / Comment(s): Metabolic hx History of Any Multi-Drug Resistant Organisms: None Reported Past Surgical History: No Surgical Hx Reported Past Psychological History: No Psychological Hx Reported Smoking Status: Current every day smoker Past Alcohol Use History: Occasional Past Drug Use History: None Reported General Exam Limitations: no limitations General appearance: alert, in no apparent distress Head exam: Present: atraumatic, normocephalic, normal inspection Eye exam: Present: normal appearance, PERRL, EOMI, other (IOP 12 in right, ). Absent: scleral icterus, conjunctival injection, periorbital swelling ENT exam: Present: normal exam, mucous membranes moist, TM's normal bilaterally, normal external ear exam Neck exam: Present: normal inspection. Absent: tenderness, meningismus, lymphadenopathy Respiratory exam: Present: normal lung sounds bilaterally. Absent: respiratory distress, wheezes, rales, rhonchi, stridor Cardiovascular Exam: Present: regular rate, normal rhythm, normal heart sounds. Absent: systolic murmur, diastolic murmur, rubs, gallop, clicks Extremities exam: Present: normal inspection, full ROM, normal capillary refill. Absent: tenderness, pedal edema, joint swelling, calf tenderness Back exam: Present: normal inspection Neurological exam: Present: alert, oriented X3, CN II-XII intact, normal gait Psychiatric exam: Present: normal affect, normal mood Skin exam: Present: warm, dry, intact, normal color. Absent: rash Course Vital Signs 12/27/23 12/27/23 17:01 18:39 Temperature 97.7 F 97.9 F Pulse Rate 68 64 Respiratory 16 18 Rate Blood Pressure 142/90 138/81 O2 Sat by Pulse 97 98 Oximetry Medical Decision Making - Medical Decision Making Was pt. sent in by a medical professional or institution (SHAYNA Chavez, ELECTRIC BRAIN WAVE EQUIPMENT MECHANIC, urgent care, hospital, or half-way...) When possible be specific @ -No Did you speak to anyone other than the patient for history (EMS, parent, family, police, friend...)? What history was obtained from this source @ -No Did you review nursing and triage notes (agree or disagree)? Why? @ -I reviewed and agree with nursing and triage notes Were old charts reviewed (outside hosp., previous admission, EMS record, old EKG, old radiological studies, urgent care reports/EKG's, half-way records)? Report findings @ -No old charts were reviewed Differential Diagnosis (chest pain, altered mental status, abdominal pain women, abdominal pain men, vaginal bleeding, weakness, fever, dyspnea, syncope, headache, dizziness, GI bleed, back pain, seizure, CVA, palpatations, mental health, musculoskeletal)? @ -Differential Headache: Migraine, tension, cluster, carbon monoxide, central venous thrombosis, pension karma temporal arteritis, acute closure glaucoma, intercranial hemorrhage, mastoiditis, sinusitis, head injury, this is not meant to be an all-inclusive list. EKG interpreted by me (3pts min.). @ -None X-rays interpreted by me (1pt min.). @ -None done CT interpreted by me (1pt min.). @ -None done U/S interpreted by me (1pt. min.). @ -None done What testing was considered but not performed or refused? (CT, X-rays, U/S, labs)? Why? @ -CT brain considered, patient declined at this time What meds were considered but not given or refused? Why? @ -None Did you discuss the management of the patient with other professionals (professionals i.e. , PA, ELECTRIC BRAIN WAVE EQUIPMENT MECHANIC, lab, RT, psych nurse, protective services social worker, electrician manager, teacher, bsa officer, correctional case manager)? Give summary @ -No Was smoking cessation discussed for >3mins.? @ -No Was critical care preformed (if so, how long)? @ -No Were there social determinants of health that impacted care today? How? (Homelessness, low income, unemployed, alcoholism, drug addiction, transportation, low edu. Level, literacy, decrease access to med. care, skilled nursing, rehab)? @ -No Was there de-escalation of care discussed even if they declined (Discuss DNR or withdrawal of care, Hospice)? DNR status @ -No What co-morbidities impacted this encounter? (DM, HTN, Smoking, COPD, CAD, Cancer, CVA, ARF, Chemo, Hep., AIDS, mental health diagnosis, sleep apnea, morbid obesity)? @ -None Was patient admitted / discharged? Hospital course, mention meds given and route, prescriptions, significant lab abnormalities, going to OR and other pertinent info. @ -Discharge. Patient presented to the emergency department for evaluation of pain behind right eye x3 months. Intraocular pressure was obtained which 12 in the right eye. Visual acuity 20/70 in right, 20/50 in the left he was not wearing his glasses. Discussed CT scan, patient declined at this time. Advised to follow-up with ophthalmology. Patient provided information for local ophthalmology. Patient understand and agreeable with plan. Patient stable at time of discharge. Case discussed with Dr. Sun Undiagnosed new problem with uncertain prognosis? @ -No Drug Therapy requiring intensive monitoring for toxicity (Heparin, Nitro, Insulin, Cardizem)? @ -No Were any procedures done? @ -No Diagnosis/symptom? @ -Eye pain Acute, or Chronic, or Acute on Chronic? @ -Acute Uncomplicated (without systemic symptoms) or Complicated (systemic symptoms)? @ -Uncomplicated Side effects of treatment? @ -No Exacerbation, Progression, or Severe Exacerbation? @ -No Poses a threat to life or bodily function? How? (Chest pain, [place], [place], pneumonia, PE, COPD, DKA, ARF, appy, cholecystitis, CVA, Diverticulitis, Homicidal, Suicidal, threat to staff... and all critical care pts) @ -No Disposition Clinical Impression: Pain, eye, right Disposition: HOME SELF-CARE Condition: Stable Instructions (If sedation given, give patient instructions): Eye Pain (ED) Additional Instructions: Please follow up with ophthalmology. Return to the emergency department for new or worsening symptoms. Is patient prescribed a controlled substance at d/c from ED?: No Referrals: Prieto Sykes, [Primary Care Provider] - 1-2 days Jacob Lainez MD [STAFF PHYSICIAN] - 1-2 days Dejan Wolff MD [STAFF PHYSICIAN] - 1-2 days New Frey MD [STAFF PHYSICIAN] - 1-2 days
[2023-12-27 18:45] VITALS: BP 138/81; PULSE 64; RESP 18; TEMP 97.9
== END 2023-12-27 18:39 | disposition home or self-care (01) ==
LOC: EC 16:55
DX: H57.11 Ocular pain, right eye (principal); F17.200 Nicotine dependence, unspecified, uncomplicated; Z91.040 Latex allergy status
CPT/HCPCS: 99283; 99284

== ENCOUNTER → 2024-01-30 | Outpatient (CLI) | payer OTHER ==
[2024-01-30 15:49] LABS: Basophils # (A) 0.03 X 10*3/uL (0.00-0.10); Basophils % (A) 0.5 %; Eosinophils # (A) 0.15 X 10*3/uL (0.04-0.35); Eosinophils % (A) 2.7 %; HCT 43.2 % (39.6-50.0); HGB 14.7 g/dL (13.0-17.0); Lymphocytes # (A) 1.43 X 10*3/uL (0.90-5.00); Lymphocytes % (A) 25.4 %; MCH 28.7 pg (27.0-32.0); MCV 84.4 FL (80.0-97.0); Mean Platelet Volume 11.4 FL (9.5-12.2); Monocytes # (A) 0.38 X 10*3/uL (0.20-1.00); Monocytes % (A) 6.7 %; NRBC Per 100 WBC 0 X 10*3/uL (0.00-0.01); Neutrophils # (A) 3.64 X 10*3/uL (1.80-7.70); Neutrophils % (A) 64.5 %; Platelet Count 207 X 10*3/uL (140-440); RBC 5.12 X 10*6/uL (4.40-5.60); RDW 12.3 % (11.5-14.5); WBC 5.64 X 10*3/uL (4.50-10.00)
[2024-01-30 16:12] LABS: ALT 26 U/L (10-49); AST 22 U/L (14-35); Albumin 4.5 g/dL (3.8-4.9); Alkaline Phosphatase 89 U/L (41-126); BUN/Creat Ratio 19.57 Ratio (12.00-20.00); Blood Urea Nitrogen 13.7 mg/dL (9.0-27.0); Calcium 9.4 mg/dL (8.7-10.3); Chloride 105 mmol/L (96-109); Chol/HDL Ratio 3.35 Ratio; Globulin 2.5 g/dL (1.6-3.3); Glucose 95 mg/dL (70-110); LDL Cholesterol,Calculated 80.2 mg/dL (0.0-131.0); Potassium 4.3 mmol/L (3.5-5.5); Sodium 139 mmol/L (135-145); Total Bilirubin 0.5 mg/dL (0.3-1.2); VLDL Calculation 15.16 mg/dL (5.00-40.00)
== END | disposition home or self-care (01) ==
LOC: LABWHC1 11:44
PROVIDERS: ATTEND Internal Medicine
DX: Z00.00 Encounter for general adult medical examination without abnormal findings (principal); Z11.59 Encounter for screening for other viral diseases; E55.9 Vitamin D deficiency, unspecified
CPT/HCPCS: 36415; 80053; 80061; 82306; 84443; 85025; 86803

== ENCOUNTER 2024-02-06 09:11 | Emergency (ER) | payer OTHER ==
[2024-02-06 09:48] VITALS: BP 120/76; PULSE 74; RESP 16; TEMP 98.5
--- NOTE | 2024-02-06 10:15 | XR ---
EXAMINATION TYPE: XR ankle complete RT DATE OF EXAM: 02/06/2024 COMPARISON: None HISTORY: Pain TECHNIQUE: Three-view right ankle FINDINGS: Ankle mortise is intact. Soft tissues are normal. No acute fracture or dislocation is evide nt. Follow up exams can be performed 7-10 days from acute trauma for continued pain IMPRESSION: 1. No acute osseous abnormality right ankle
--- NOTE | 2024-02-06 10:21 | ED ---
Lower Extremity Injury HPI - General Chief Complaint: Extremity Injury, Lower Stated Complaint: R Foot Ankle Injury Time Seen by Provider: 02/06/24 09:23 Source: patient, RN notes reviewed Mode of arrival: wheelchair Limitations: no limitations - History of Present Illness Initial Comments: 23-year-old male presents emergency department chief complaint of right ankle pain. He states he is coming down the steps states that he rolled his ankle he is pain on ankle and the back of his heel. Patient states he has no paresthesias patient states that he has no other complaints. - Related Data Previous Rx's Medication Instructions Recorded Cyclobenzaprine [Flexeril] 5 mg PO HS PRN #10 tab 08/14/22 Ibuprofen [Motrin] 800 mg PO Q8H PRN #30 tab 08/14/22 Lidocaine 5% Patch [Lidoderm 5% 1 patch TOPICAL DAILY PRN #7 patch 08/14/22 Patch] hydrOXYzine HCL [Atarax] 25 mg PO BID PRN #28 tab 08/14/22 Allergies Allergy/AdvReac Type Severity Reaction Status Date / Time latex Allergy Mild Rash/Hives Verified 12/25/23 15:15 Review of Systems ROS Statement: Those systems with pertinent positive or pertinent negative responses have been documented in the HPI. ROS Other: All systems not noted in ROS Statement are negative. Past Medical History Additional Past Medical History / Comment(s): Metabolic hx History of Any Multi-Drug Resistant Organisms: None Reported Past Surgical History: No Surgical Hx Reported Past Psychological History: No Psychological Hx Reported Smoking Status: Current every day smoker Past Alcohol Use History: Occasional Past Drug Use History: None Reported General Exam Limitations: no limitations General appearance: alert, in no apparent distress Head exam: Present: atraumatic, normocephalic, normal inspection Respiratory exam: Present: normal lung sounds bilaterally. Absent: respiratory distress, wheezes, rales, rhonchi, stridor Cardiovascular Exam: Present: regular rate, normal rhythm, normal heart sounds. Absent: systolic murmur, diastolic murmur, rubs, gallop, clicks Extremities exam: Present: other (Mild tenderness bilateral malleolus right ankle, normal Go test, no Achilles tenderness) Neurological exam: Present: alert, reflexes normal. Absent: motor sensory deficit Course Vital Signs 02/06/24 09:19 Temperature 98.5 F Pulse Rate 74 Respiratory 16 Rate Blood Pressure 120/76 O2 Sat by Pulse 98 Oximetry Medical Decision Making - Medical Decision Making Was pt. sent in by a medical professional or institution (SHAYNA Chavez, ASSOCIATE PROFESSOR OF BIOLOGY, urgent c are, hospital, or alf...) When possible be specific @ -No Did you speak to anyone other than the patient for history (EMS, parent, family, police, friend...)? What history was obtained from this source @ -No Did you review nursing and triage notes (agree or disagree)? Why? @ -I reviewed and agree with nursing and triage notes Were old charts reviewed (outside hosp., previous admission, EMS record, old EKG, old radiological studies, urgent care reports/EKG's, alf records)? Report findings @ -No old charts were reviewed Differential Diagnosis (chest pain, altered mental status, abdominal pain women, abdominal pain men, vaginal bleeding, weakness, fever, dyspnea, syncope, headache, dizziness, GI bleed, back pain, seizure, CVA, palpatations, mental health, musculoskeletal)? @ -Ankle sprain, ankle fracture EKG interpreted by me (3pts min.). @ -None X-rays interpreted by me (1pt min.). @ -X-ray right ankle shows no acute malady CT interpreted by me (1pt min.). @ -None done U/S interpreted by me (1pt. min.). @ -None done What testing was considered but not performed or refused? (CT, X-rays, U/S, labs)? Why? @ -None What meds were considered but not given or refused? Why? @ -None Did you discuss the management of the patient with other professionals (professionals i.e. SHAYNA Chavez, ASSOCIATE PROFESSOR OF BIOLOGY, lab, RT, psych nurse, social welfare research worker, neckties painter, teacher, licensed mortgage loan officer, housing case manager)? Give summary @ -No Was smoking cessation discussed for >3mins.? @ -No Was critical care preformed (if so, how long)? @ -No Were there social determinants of health that impacted care today? How? (Ho melessness, low income, unemployed, alcoholism, drug addiction, transportation, low edu. Level, literacy, decrease access to med. care, nursing home, rehab)? @ -No Was there de-escalation of care discussed even if they declined (Discuss DNR or withdrawal of care, Hospice)? DNR status @ -No What co-morbidities impacted this encounter? (DM, HTN, Smoking, COPD, CAD, Cancer, CVA, ARF, Chemo, Hep., AIDS, mental health diagnosis, sleep apnea, morbid obesity)? @ -None Was patient admitted / discharged? Hospital course, mention meds given and route, prescriptions, significant lab abnormalities, going to OR and other pertinent info. @ -Discharge patient is right ankle sprain possible Achilles strain will be placed in a stirrup Aircast will follow-up with orthopedics return transfer discussed. Undiagnosed new problem with uncertain prognosis? @ -No Drug Therapy requiring intensive monitoring for toxicity (Heparin, Nitro, Insulin, Cardizem)? @ -No Were any procedures done? @ -No Diagnosis/symptom? @ -Right ankle pain Acute, or Chronic, or Acute on Chronic? @ -Acute Uncomplicated (without systemic symptoms) or Complicated (systemic symptoms)? @ -Uncomplicated Side effects of treatment? @ -No Exacerbation, Progression, or Severe Exacerbation? @ -No Poses a threat to life or bodily function? How? (Chest pain, [place], [place], pneumonia, PE, COPD, DKA, ARF, appy, cholecystitis, CVA, Diverticulitis, Homicidal, Suicidal, threat to staff... and all critical care pts) @ -No Disposition Clinical Impression: Right ankle sprain, Strain of Achilles tendon Disposition: HOME SELF-CARE Condition: Stable Instructions (If sedation given, give patient instructions): Ankle Sprain (ED) Additional Instructions: Please return to the Emergency Department if symptoms worsen or any other concerns. Is patient prescribed a controlled substance at d/c from ED?: No Referrals: Prieto Sykes DO [Primary Care Provider] - 1-2 days Davi Christopher MD [STAFF PHYSICIAN] - 1-2 days Time of Disposition: 10:21
== END 2024-02-06 10:51 | disposition home or self-care (01) ==
LOC: EC 09:11
DX: S93.401A Sprain of unspecified ligament of right ankle, initial encounter (principal); S86.011A Strain of right Achilles tendon, initial encounter; X50.1XXA Overexertion from prolonged static or awkward postures, initial encounter; F17.200 Nicotine dependence, unspecified, uncomplicated; Z91.040 Latex allergy status
CPT/HCPCS: 99283

== ENCOUNTER 2024-02-09 12:55 | Emergency (ER) | payer OTHER ==
[2024-02-09 13:21] VITALS: RESP 18; TEMP 98
--- NOTE | 2024-02-09 13:28 | ED ---
Lower Extremity Injury HPI - General Chief Complaint: Extremity Injury, Lower Stated Complaint: Recheck-[facility] R foot injury Time Seen by Provider: 02/09/24 13:27 Source: patient, RN notes reviewed Mode of arrival: ambulatory Limitations: no limitations - History of Present Illness Initial Comments: 23-year-old male presenting to the ER with a chief complaint of right ankle injury. He reports last week while at work he accidentally tripped walking down the stairs. He was seen in the ER and was diagnosed with a Achilles strain. Patient has been off work but states he needs a longer extension due to the pain as he works a physical job. He does report he is still experiencing pain in the arch of his foot and first metatarsal. Denies any paresthesias. Patient has yet to follow-up with orthopedics. Patient denies any new injuries or traumas. - Related Data Previous Rx's Medication Instructions Recorded Cyclobenzaprine [Flexeril] 5 mg PO HS PRN #10 tab 08/14/22 Ibuprofen [Motrin] 800 mg PO Q8H PRN #30 tab 08/14/22 Lidocaine 5% Patch [Lidoderm 5% 1 patch TOPICAL DAILY PRN #7 patch 08/14/22 Patch] hydrOXYzine HCL [Atarax] 25 mg PO BID PRN #28 tab 08/14/22 Allergies Allergy/AdvReac Type Severity Reaction Status Date / Time latex Allergy Mild Rash/Hives Verified 02/09/24 13:03 Review of Systems ROS Statement: Those systems with pertinent positive or pertinent negative responses have been documented in the HPI. ROS Other: All systems not noted in ROS Statement are negative. Past Medical History Additional Past Medical History / Comment(s): Metabolic hx History of Any Multi-Drug Resistant Organisms: None Reported Past Surgical History: No Surgical Hx Reported Past Psychological History: No Psychological Hx Reported Smoking Status: Current every day smoker Past Alcohol Use History: Occasional Past Drug Use History: None Reported General Exam - General Exam Comments Initial Comments: Visual Physical Exam Vital signs reviewed General: Well-appearing, nontoxic, no acute distress. Head: Normocephalic, atraumatic Eyes: PERRLA, EOMI ENT: Airway patent Chest: Nonlabored breathing Skin: No visual rash, normal skin tone Neuro: Alert and oriented 3 Musculoskeletal: No gross abnormalities Limitations: no limitations General appearance: alert, in no apparent distress Respiratory exam: Present: normal lung sounds bilaterally. Absent: respiratory distress, wheezes, rales, rhonchi, stridor Cardiovascular Exam: Present: regular rate, normal rhythm, normal heart sounds. Absent: systolic murmur, diastolic murmur, rubs, gallop, clicks Extremities exam: Present: full ROM, tenderness (Distal first metatarsal. Nonpitting edema to right ankle. 2+ dorsalis pedis and posterior tibialis pulses. No rashes, erythema or contusions. Sensation intact.) Skin exam: Present: warm, dry, intact, normal color. Absent: rash Course Vital Signs 02/09/24 02/09/24 13:00 14:52 Temperature 98 F 98 F Pulse Rate 81 77 Respiratory 18 18 Rate Blood Pressure 150/100 142/89 O2 Sat by Pulse 98 98 Oximetry Medical Decision Making - Medical Decision Making I performed the quick note portion of this chart. Electronically signed by Fredy Anderson PA-C Was pt. sent in by a medical professional or institution (SHAYNA Chavez, AIRCRAFT STRUCTURAL REPAIRER, urgent care, hospital, or assisted...) When possible be specific @ -No Did you speak to anyone other than the patient for history (EMS, parent, family, police, friend...)? What history was obtained from this source @ -No Did you review nursing and triage notes (agree or disagree)? Why? @ -I reviewed and agree with nursing and triage notes Were old charts reviewed (outside hosp., previous admission, EMS record, old EKG, old radiological studies, urgent care reports/EKG's, assisted records)? Report findings @ -Yes I reviewed old chart and ankle x-ray from 02-06-2024. Ankle x-ray negative for acute process. Patient diagnosed with an ankle sprain and Achilles strain and discharged with orthopedic follow-up. Differential Diagnosis (chest pain, altered mental status, abdominal pain women, abdominal pain men, vaginal bleeding, weakness, fever, dyspnea, syncope, headache, dizziness, GI bleed, back pain, seizure, CVA, palpatations, mental health, musculoskeletal)? @ -Differential Musculoskeletal: Muscular strain, contusion, ligament sprain, fracture, arthritis, septic arthritis, bursitis, cellulitis, muscle spasm, nerve compression, DVT, arterial occlusion, herpes zoster, electrolyte abnormality, tumor.... This is not meant to be in all inclusive list EKG interpreted by me (3pts min.). @ -None X-rays interpreted by me (1pt min.). @ -Right foot and ankle x-rays interpreted by me negative for acute process. CT interpreted by me (1pt min.). @ -None done U/S interpreted by me (1pt. min.). @ -None done What testing was considered but not performed or refused? (CT, X-rays, U/S, labs)? Why? @ -None What meds were considered but not given or refused? Why? @ -Patient refused analgesic medication Did you discuss the management of the patient with other professionals (professionals i.e. , PA, AIRCRAFT STRUCTURAL REPAIRER, lab, RT, psych nurse, sr. social media & mobile manager, cds sales advisor, teacher, hospital chief financial officer, family independence case manager)? Give summary @ -No Was smoking cessation discussed for >3mins.? @ -No Was critical care preformed (if so, how long)? @ -No Were there social determinants of health that impacted care today? How? (Homelessness, low income, unemployed, alcoholism, drug addiction, transportation, low edu. Level, literacy, decrease access to med. care, residential, rehab)? @ -No Was there de-escalation of care discussed even if they declined (Discuss DNR or withdrawal of care, Hospice)? DNR status @ -No What co-morbidities impacted this encounter? (DM, HTN, Smoking, COPD, CAD, Cancer, CVA, ARF, Chemo, Hep., AIDS, mental health diagnosis, sleep apnea, morbid obesity)? @ -None Was patient admitted / discharged? Hospital course, mention meds given and route, prescriptions, significant lab abnormalities, going to OR and other pertinent info. @ -Discharge. 23-year-old male presented to the ER with a chief complaint of right ankle injury. Patient recently seen here on 02-06-2024 for similar complaint. History and physical exam completed. Vitals stable. Patient in no signs of acute distress and nontoxic-appearing. Right lower extremity neurovascular intact. There is mild nonpitting edema to right ankle. No erythema or contusions. Due to patient describing continued pain repeat x-rays completed. Right ankle and foot x-rays negative for acute process. I strongly encourage patient to follow-up with orthopedics, referral given. I advised rest, ice, elevation and compression. Return parameters discussed. Patient discharged stable condition. Patient verbally expressed understanding and agreement with care plan. Case discussed with ED attending, Dr. Flores. Undiagnosed new problem with uncertain prognosis? @ -No Drug Therapy requiring intensive monitoring for toxicity (Heparin, Nitro, Insulin, Cardizem)? @ -No Were any procedures done? @ -No Diagnosis/symptom? @ -Ankle sprain Acute, or Chronic, or Acute on Chronic? @ -Acute Uncomplicated (without systemic symptoms) or Complicated (systemic symptoms)? @ -Uncomplicated Side effects of treatment? @ -No Exacerbation, Progression, or Severe Exacerbation? @ -No Poses a threat to life or bodily function? How? (Chest pain, [place], [place], pneumonia, PE, COPD, DKA, ARF, appy, cholecystitis, CVA, Diverticulitis, Homicidal, Suicidal, threat to staff... and all critical care pts) @ -No - Radiology Data Radiology results: report reviewed, image reviewed Disposition Clinical Impression: Right ankle sprain Disposition: HOME SELF-CARE Condition: Stable Instructions (If sedation given, give patient instructions): Ankle Sprain (ED) Additional Instructions: Continue to rest, ice and use compression. I strongly recommend you follow-up with orthopedics. Return to the ER for any new or worsening concerns. Is patient prescribed a controlled substance at d/c from ED?: No Referrals: Prieto Sykes DO [Primary Care Provider] - 1-2 days Davi Christopher MD [STAFF PHYSICIAN] - 1-2 days Time of Disposition: 14:42
--- NOTE | 2024-02-09 14:30 | XR ---
EXAMINATION TYPE: XR foot complete RT DATE OF EXAM: 02/09/2024 COMPARISON: None HISTORY: Pain, fall TECHNIQUE: 3 view right foot FINDINGS: No acute fracture or dislocation is evident. Joint spaces are preserved. Soft tissues are n ormal. Follow up exams can be performed 7-10 days from acute trauma for continued pain. IMPRESSION: 1. No acute osseous abnormality right foot
--- NOTE | 2024-02-09 14:31 | XR ---
EXAMINATION TYPE: XR ankle complete RT DATE OF EXAM: 02/09/2024 COMPARISON: 02/06/2024 HISTORY: Twisted ankle TECHNIQUE: 3 view right ankle FINDINGS: Ankle mortise is intact. Joint spaces are preserved. No acute fracture or dislocation is ev ident. Follow up exams can be performed 7-10 days from acute trauma for continued pain. IMPRESSION: 1. No acute osseous abnormality radiographically apparent.
[2024-02-09 15:56] VITALS: BP 142/89; PULSE 77
== END 2024-02-09 15:13 | disposition home or self-care (01) ==
LOC: EC 12:55
DX: S93.401A Sprain of unspecified ligament of right ankle, initial encounter (principal); F17.200 Nicotine dependence, unspecified, uncomplicated; Z91.040 Latex allergy status; Y93.01 Activity, walking, marching and hiking; X50.1XXA Overexertion from prolonged static or awkward postures, initial encounter
CPT/HCPCS: 99284

== ENCOUNTER 2024-06-07 06:05 | Emergency (ER) | payer OTHER ==
[2024-06-07 06:10] VITALS: TEMP 98.1
--- NOTE | 2024-06-07 06:20 | ED ---
Chest Pain HPI - General Chief Complaint: Chest Pain Stated Complaint: Chest pain Time Seen by Provider: 06/07/24 06:10 Source: patient, EMS, RN notes reviewed Mode of arrival: EMS Limitations: no limitations - History of Present Illness Initial Comments: 24-year-old male presents emergency department via EMS chief complaint of left- sided chest pain, abdominal pain. Patient states it woke him up this morning states it seems to come and go. Nothing is make it better wants tear but he states that it is slightly worse with movement. No shortness of breath no pericardiac disease no dysuria no change in bowel habits patient denies any trauma he has not taking medications for the symptoms. - Related Data Previous Rx's Medication Instructions Recorded Cyclobenzaprine [Flexeril] 5 mg PO HS PRN #10 tab 08/14/22 Ibuprofen [Motrin] 800 mg PO Q8H PRN #30 tab 08/14/22 Lidocaine 5% Patch [Lidoderm 5% 1 patch TOPICAL DAILY PRN #7 patch 08/14/22 Patch] hydrOXYzine HCL [Atarax] 25 mg PO BID PRN #28 tab 08/14/22 Allergies Allergy/AdvReac Type Severity Reaction Status Date / Time latex Allergy Mild Rash/Hives Verified 06/07/24 06:07 Review of Systems ROS Statement: Those systems with pertinent positive or pertinent negative responses have been documented in the HPI. ROS Other: All systems not noted in ROS Statement are negative. EKG Findings - EKG Comments: EKG Findings:: EKG performed at 5: 59 sinus rhythm with early repull rate of 60 CT 122 QRS 92 QT/QTc 378/379 - EKG Results: EKG: interpreted by ROHINI Past Medical History Additional Past Medical History / Comment(s): Metabolic hx History of Any Multi-Drug Resistant Organisms: None Reported Past Surgical History: No Surgical Hx Reported Past Psychological History: No Psychological Hx Reported Smoking Status: Current every day smoker Past Alcohol Use History: Occasional Past Drug Use History: None Reported General Exam Limitations: no limitations General appearance: alert, in no apparent distress Head exam: Present: atraumatic, normocephalic, normal inspection Neck exam: Present: normal inspection, full ROM. Absent: tenderness, meningismus, lymphadenopathy Respiratory exam: Present: normal lung sounds bilaterally. Absent: respiratory distress, wheezes, rales, rhonchi, stridor Cardiovascular Exam: Present: regular rate, normal rhythm, normal heart sounds. Absent: systolic murmur, diastolic murmur, rubs, gallop, clicks GI/Abdominal exam: Present: soft, normal bowel sounds. Absent: distended, tenderness, guarding, rebound, rigid Course Vital Signs 06/07/24 06/07/24 06/07/24 06:07 08:41 10:39 Temperature 98.1 F Pulse Rate 64 57 L 75 Respiratory 18 18 20 Rate Blood Pressure 121/67 118/77 140/86 O2 Sat by Pulse 98 97 98 Oximetry Chest Pain MDM - MDM Was pt. sent in by a medical professional or institution (, PA, DISPATCHER TUGBOAT, urgent care, hospital, or [facility]...) When possible be specific @ -No Did you speak to anyone other than the patient for history (EMS, parent, family, police, friend...)? What history was obtained from this source @ -No Did you review nursing and triage notes (agree or disagree)? Why? @ -I reviewed and agree with nursing and triage notes Were old charts reviewed (outside hosp., previous admission, EMS record, old EKG, old radiological studies, urgent care reports/EKG's, [facility] records)? Report findings @ -No old charts were reviewed Differential Diagnosis (chest pain, altered mental status, abdominal pain women, abdominal pain men, vaginal bleeding, weakness, fever, dyspnea, syncope, headache, dizziness, GI bleed, back pain, seizure, CVA, palpatations, mental health, musculoskeletal)? @ -Differential Chest Pain: Stable Angina, Unstable Angina, STEMI, NSTEMI Aortic Dissection, Pneumothorax, Musculoskeletal, Esophageal Spasm GERD, Cholecystitis, Pancreatitis, Zoster, this is not meant to be an all-inclusive list. EKG interpreted by me (3pts min.). @ -As above X-rays interpreted by me (1pt min.). @ -Chest x-ray shows no acute cardiopulmonary process CT interpreted by me (1pt min.). @ -None done U/S interpreted by me (1pt. min.). @ -None done What testing was considered but not performed or refused? (CT, X-rays, U/S, labs)? Why? @ -None What meds were considered but not given or refused? Why? @ -None Did you discuss the management of the patient with other professionals (professionals i.e. , PA, DISPATCHER TUGBOAT, lab, RT, psych nurse, manager social, egg trayer, teacher, police liaison officer, behavioral health case manager)? Give summary @ -No Was smoking cessation discussed for >3mins.? @ -No Was critical care preformed (if so, how long)? @ -No Were there social determinants of health that impacted care today? How? (Homelessness, low income, unemployed, alcoholism, drug addiction, transportation, low edu. Level, literacy, decrease access to med. care, group home, rehab)? @ -No Was there de-escalation of care discussed even if they declined (Discuss DNR or withdrawal of care, Hospice)? DNR status @ -No What co-morbidities impacted this encounter? (DM, HTN, Smoking, COPD, CAD, C ancer, CVA, ARF, Chemo, Hep., AIDS, mental health diagnosis, sleep apnea, morbid obesity)? @ -None Was patient admitted / discharged? Hospital course, mention meds given and route, prescriptions, significant lab abnormalities, going to OR and other pertinent info. @ -[This patient's pain is resolved laboratory studies unremarkable chest x-ray unremarkable discharged in stable condition Undiagnosed new problem with uncertain prognosis? @ -No Drug Therapy requiring intensive monitoring for toxicity (Heparin, Nitro, Insulin, Cardizem)? @ -No Were any procedures done? @ -No Diagnosis/symptom? @ -Atypical chest pain Acute, or Chronic, or Acute on Chronic? @ -Acute Uncomplicated (without systemic symptoms) or Complicated (systemic symptoms)? @ -Uncomplicated Side effects of treatment? @ -No Exacerbation, Progression, or Severe Exacerbation? @ -No Poses a threat to life or bodily function? How? (Chest pain, [place], [place], pneumonia, PE, COPD, DKA, ARF, appy, cholecystitis, CVA, Diverticulitis, Homicidal, Suicidal, threat to staff... and all critical care pts) @ -No Disposition Clinical Impression: Atypical chest pain Disposition: HOME SELF-CARE Condition: Stable Instructions (If sedation given, give patient instructions): Chest Pain (ED) Additional Instructions: Please return to the Emergency Department if symptoms worsen or any other concerns. Is patient prescribed a controlled substance at d/c from ED?: No Referrals: Prieto Sykes DO [Primary Care Provider] - 1-2 days Time of Disposition: 10:01
[2024-06-07 06:35] LABS: Basophils % (A) 1 %; Eosinophils # (A) 0.3 k/uL (0-0.7); Eosinophils % (A) 3 %; HCT 44.1 % (39.0-53.0); HGB 15.1 gm/dL (13.0-17.5); Lymphocytes # (A) 2.3 k/uL (1.0-4.8); Lymphocytes % (A) 26 %; MCH 29.5 pg (25.0-35.0); MCHC 34.3 g/dL (31.0-37.0); MCV 86.2 fL (80.0-100.0); Mean Platelet Volume 8.5; Monocytes # (A) 0.5 k/uL (0-1.0); Monocytes % (A) 5 %; Neutrophils # (A) 5.6 k/uL (1.3-7.7); Neutrophils % (A) 63 %; Platelet Count 212 k/uL (150-450); RBC 5.11 m/uL (4.30-5.90); RDW 12.4 % (11.5-15.5); WBC 8.8 k/uL (3.8-10.6)
[2024-06-07] MEDS: KETOROLAC 15 MG/ML 1 ML VIAL IVP STA (06:40)
[2024-06-07 06:46] LABS: ALT 20 U/L (4-49); AST 29 U/L (17-59); African American GFR (CKD) >90 (>60 ml/min/1.73 sqM); Albumin 4.6 g/dL (3.5-5.0); Alkaline Phosphatase 96 U/L (38-126); Anion Gap 8 mmol/L; Blood Urea Nitrogen 14 mg/dL (9-20); Calcium 9.6 mg/dL (8.4-10.2); Carbon Dioxide 23 mmol/L (22-30); Chloride 106 mmol/L (98-107); Glucose 94 mg/dL (74-99); Magnesium 1.7 mg/dL (1.6-2.3); Non-African American GFR(CKD) >90 (>60 ml/min/1.73 sqM); Potassium 4.2 mmol/L (3.5-5.1); Sodium 137 mmol/L (137-145); Total Bilirubin 0.8 mg/dL (0.2-1.3); Total Protein 7.5 g/dL (6.3-8.2)
[2024-06-07 06:51] LABS: Partial Thromboplastin Time 23.1 sec (22.0-30.0); Prothrombin Time 11.4 sec (10.0-12.5)
--- NOTE | 2024-06-07 09:55 | XR ---
EXAMINATION TYPE: XR chest 2V DATE OF EXAM: 06/07/2024 COMPARISON: 08/28/2023 INDICATION: Chest pain TECHNIQUE: Frontal and lateral views of the chest are obtained. FINDINGS: The heart size is normal. The pulmonary vasculature is normal. The lungs are clear. IMPRESSION: 1. No acute pulmonary process. [facility], , 06/07/2024 8:48 AM
[2024-06-07 10:40] VITALS: BP 140/86; PULSE 75; RESP 20
[2024-06-07 11:02] LABS: Appearance,Urine Clear (Clear); Bilirubin,Urine Negative (Negative); Blood,Urine Negative (Negative); Color,Urine Yellow; Glucose,Urine (UA) Negative (Negative); Ketones,Urine Negative (Negative); Leukocyte Esterase,Urine Negative (Negative); Nitrite,Urine Negative (Negative); Protein,Urine Trace (Negative); Specific Gravity,Urine 1.028 (1.001-1.035); Urobilinogen,Urine <2.0 mg/dL (<2.0)
== END 2024-06-07 10:40 | disposition home or self-care (01) ==
LOC: EC 06:05
CPT/HCPCS: 36415; 71046; 80053; 81003; 83735; 84484; 85025; 85379; 85610; 85730; 93005; 96374; 99285

== ENCOUNTER 2024-08-22 09:41 | Emergency (ER) | payer OTHER ==
[2024-08-22 09:48] VITALS: TEMP 98.4
--- NOTE | 2024-08-22 10:20 | ED ---
Recheck HPI - General Chief Complaint: Recheck/Abnormal Lab/Rx Stated Complaint: sleep issues Time Seen by Provider: 08/22/24 10:00 Source: patient, RN notes reviewed Mode of arrival: ambulatory Limitations: no limitations - History of Present Illness Initial Comments: This is a 24-year-old male presenting with difficulty sleeping since 9 AM yesterday morning. Patient states he is jolting awake and is unable to stay asleep. Patient states he normally sleeps around 10 PM, occasionally over sleeping until 2 or 3 in the afternoon. States he has been tired upon waking for the past several years, even with excessive sleep, with associated headaches and dizziness. Patient endorses history of heatstroke/cramps, stating he is waking up in pain and his body "feels like quitting". Patient endorses family history of sleep apnea. States he has recently quit smoking completely over the past 3 days. Onset/Timin -: days(s) - Related Data Previous Rx's Medication Instructions Recorded Cyclobenzaprine [Flexeril] 5 mg PO HS PRN #10 tab 08/14/22 Ibuprofen [Motrin] 800 mg PO Q8H PRN #30 tab 08/14/22 Lidocaine 5% Patch [Lidoderm 5% 1 patch TOPICAL DAILY PRN #7 patch 08/14/22 Patch] hydrOXYzine HCL [Atarax] 25 mg PO BID PRN #28 tab 08/14/22 Allergies Allergy/AdvReac Type Severity Reaction Status Date / Time latex Allergy Mild Rash/Hives Verified 08/22/24 09:48 Review of Systems ROS Statement: Those systems with pertinent positive or pertinent negative responses have been documented in the HPI. ROS Other: All systems not noted in ROS Statement are negative. Past Medical History Additional Past Medical History / Comment(s): Metabolic hx History of Any Multi-Drug Resistant Organisms: None Reported Past Surgical History: No Surgical Hx Reported Past Psychological History: No Psychological Hx Reported Smoking Status: Current every day smoker Past Alcohol Use History: Occasional Past Drug Use History: None Reported General Exam Limitations: no limitations General appearance: alert, in no apparent distress, other (Patient appears fatigued) Head exam: Present: atraumatic, normocephalic, normal inspection Eye exam: Present: normal appearance, PERRL, EOMI. Absent: scleral icterus, conjunctival injection, periorbital swelling ENT exam: Present: normal exam, mucous membranes moist Neck exam: Present: normal inspection. Absent: tenderness, meningismus, lymphadenopathy, thyromegaly Respiratory exam: Present: normal lung sounds bilaterally. Absent: respiratory distress, wheezes, rales, rhonchi, stridor Cardiovascular Exam: Present: regular rate, normal rhythm, normal heart sounds. Absent: systolic murmur, diastolic murmur, rubs, gallop, clicks GI/Abdominal exam: Present: soft, normal bowel sounds. Absent: distended, tenderness, guarding, rebound, rigid Extremities exam: Present: normal inspection, full ROM, normal capillary refill. Absent: tenderness, pedal edema, joint swelling, calf tenderness Back exam: Present: normal inspection Neurological exam: Present: alert, oriented X3, CN II-XII intact Psychiatric exam: Present: normal affect, normal mood Skin exam: Present: warm, dry, intact, normal color. Absent: rash Course Vital Signs 08/22/24 09:45 Temperature 98.4 F Pulse Rate 75 Respiratory 16 Rate Blood Pressure 148/99 O2 Sat by Pulse 98 Oximetry Medical Decision Making - Medical Decision Making Was pt. sent in by a medical professional or institution (, PA, BOX MACHINE OPERATOR, urgent care, hospital, or [facility]...) When possible be specific @ -[No] Did you speak to anyone other than the patient for history (EMS, parent, family, police, friend...)? What history was obtained from this source @ -[No] Did you review nursing and triage notes (agree or disagree)? Why? @ -[I reviewed and agree with nursing and triage notes] Were old charts reviewed (outside hosp., previous admission, EMS record, old EKG, old radiological studies, urgent care reports/EKG's, [facility] records)? Report findings @ -Reviewed EKG from May 2024. Lateral leads (V5, V6) and lead II ST elevation noted at that time as well. Differential Diagnosis (chest pain, altered mental status, abdominal pain women, abdominal pain men, vaginal bleeding, weakness, fever, dyspnea, syncope, headache, dizziness, GI bleed, back pain, seizure, CVA, palpatations, mental health, musculoskeletal)? @ -Hyperthyroidism, hypothyroidism, sleep apnea, anxiety, insomnia, anemia, DM, chronic fatigue syndrome, fibromyalgia, MS, this is not an exhaustive list EKG interpreted by me (3pts min.). @ -Sinus rhythm with ST elevation in lateral leads and lead II. Similar to prior EKG in May 2024. New T wave inversion in limb lead III. Ventricular rate 64 bpm, ROM 124 ms, QRS duration 104 ms, QTc 380 ms. X-rays interpreted by me (1pt min.). @ -[None done] CT interpreted by me (1pt min.). @ -[None done] U/S interpreted by me (1pt. min.). @ -[None done] What testing was considered but not performed or refused? (CT, X-rays, U/S, labs)? Why? @ -[None] What meds were considered but not given or refused? Why? @ -[None] Did you discuss the management of the patient with other professionals (professionals i.e. , PA, BOX MACHINE OPERATOR, lab, RT, psych nurse, social service coordinator, boarder hand, teacher, attendance officer, child support case officer)? Give summary @ -[No] Was smoking cessation discussed for >3mins.? @ -[No] Was critical care preformed (if so, how long)? @ -[No] Were there social determinants of health that impacted care today? How? (Homelessness, low income, unemployed, alcoholism, drug addiction, transportation, low edu. Level, literacy, decrease access to med. care, correction, rehab)? @ -[No] Was there de-escalation of care discussed even if they declined (Discuss DNR or withdrawal of care, Hospice)? DNR status @ -[No] What co-morbidities impacted this encounter? (DM, HTN, Smoking, COPD, CAD, Cancer, CVA, ARF, Chemo, Hep., AIDS, mental health diagnosis, sleep apnea, morbid obesity)? @ -[None] Was patient admitted / discharged? Hospital course, mention meds given and route, prescriptions, significant lab abnormalities, going to OR and other pertinent info. @ -[hospital course] Undiagnosed new problem with uncertain prognosis? @ -[No] Drug Therapy requiring intensive monitoring for toxicity (Heparin, Nitro, Insulin, Cardizem)? @ -[No] Were any procedures done? @ -[No] Diagnosis/symptom? @ -Sleep apnea Acute, or Chronic, or Acute on Chronic? @ -Acute on chronic Uncomplicated (without systemic symptoms) or Complicated (systemic symptoms)? @ -Uncomplicated Side effects of treatment? @ -[No] Exacerbation, Progression, or Severe Exacerbation? @ -[No] Poses a threat to life or bodily function? How? (Chest pain, [place], [place], pneumonia, PE, COPD, DKA, ARF, appy, cholecystitis, CVA, Diverticulitis, Homicidal, Suicidal, threat to staff... and all critical care pts) @ -[No] - Lab Data Result diagrams: 08/22/24 10:22 08/22/24 10:22 Lab Results 08/22/24 08/22/24 08/22/24 Range/Units 10: 10: 10:53 WBC 7.7 (3.8-10.6) k/uL RBC 5.07 (4.30-5.90) m/uL Hgb 14.7 (13.0-17.5) gm/dL Hct 42.9 (39.0-53.0) % MCV 84.6 (80.0-100.0) fL MCH 29.1 (25.0-35.0) pg MCHC 34.4 (31.0-37.0) g/dL RDW 12.4 (11.5-15.5) % Plt Count 215 (150-450) k/uL MPV 8.3 Neutrophils % 73 % Lymphocytes % 18 % Monocytes % 5 % Eosinophils % 3 % Basophils % 0 % Neutrophils # 5.6 (1.3-7.7) k/uL Lymphocytes # 1.4 (1.0-4.8) k/uL Monocytes # 0.4 (0-1.0) k/uL Eosinophils # 0.2 (0-0.7) k/uL Basophils # 0.0 (0-0.2) k/uL Sodium 137 (137-145) mmol/L Potassium 3.8 (3.5-5.1) mmol/L Chloride 105 (98-107) mmol/L Carbon Dioxide 25 (22-30) mmol/L Anion Gap 7 mmol/L BUN 14 (9-20) mg/dL Creatinine 0.78 (0.66-1.25) mg/dL Est GFR (CKD-EPI)AfAm >90 (>60 ml/min/1.73 sqM) Est GFR (CKD-EPI)NonAf >90 (>60 ml/min/1.73 sqM) Glucose 96 (74-99) mg/dL Calcium 9.7 (8.4-10.2) mg/dL Total Bilirubin 0.8 (0.2-1.3) mg/dL AST 25 (17-59) U/L ALT 30 (4-49) U/L Alkaline Phosphatase 97 (38-126) U/L Troponin I <0.012 (0.000-0.034) ng/mL Total Protein 7.6 (6.3-8.2) g/dL Albumin 4.6 (3.5-5.0) g/dL TSH 1.300 (0.465-4.680) mIU/L Disposition Clinical Impression: Sleep apnea Disposition: HOME SELF-CARE Condition: Good Instructions (If sedation given, give patient instructions): Insomnia (ED) Additional Instructions: Follow-up with PCP for sleep study referral Is patient prescribed a controlled substance at d/c from ED?: No Referrals: Prieto Sykes DO [Primary Care Provider] - 1-2 days Time of Disposition: 11:55
[2024-08-22] MEDS: MECLIZINE 12.5 MG TAB PO STA (10:27)
[2024-08-22 10:35] LABS: Basophils % (A) 0 %; Eosinophils # (A) 0.2 k/uL (0-0.7); Eosinophils % (A) 3 %; HCT 42.9 % (39.0-53.0); HGB 14.7 gm/dL (13.0-17.5); Lymphocytes # (A) 1.4 k/uL (1.0-4.8); Lymphocytes % (A) 18 %; MCH 29.1 pg (25.0-35.0); MCHC 34.4 g/dL (31.0-37.0); MCV 84.6 fL (80.0-100.0); Mean Platelet Volume 8.3; Monocytes # (A) 0.4 k/uL (0-1.0); Monocytes % (A) 5 %; Neutrophils # (A) 5.6 k/uL (1.3-7.7); Neutrophils % (A) 73 %; Platelet Count 215 k/uL (150-450); RBC 5.07 m/uL (4.30-5.90); RDW 12.4 % (11.5-15.5); WBC 7.7 k/uL (3.8-10.6)
[2024-08-22] MEDS: KETOROLAC 15 MG/ML 1 ML VIAL IVP STA (10:35)
[2024-08-22 10:54] LABS: ALT 30 U/L (4-49); AST 25 U/L (17-59); African American GFR (CKD) >90 (>60 ml/min/1.73 sqM); Albumin 4.6 g/dL (3.5-5.0); Alkaline Phosphatase 97 U/L (38-126); Anion Gap 7 mmol/L; Blood Urea Nitrogen 14 mg/dL (9-20); Calcium 9.7 mg/dL (8.4-10.2); Carbon Dioxide 25 mmol/L (22-30); Chloride 105 mmol/L (98-107); Glucose 96 mg/dL (74-99); Non-African American GFR(CKD) >90 (>60 ml/min/1.73 sqM); Potassium 3.8 mmol/L (3.5-5.1); Sodium 137 mmol/L (137-145); Total Bilirubin 0.8 mg/dL (0.2-1.3); Total Protein 7.6 g/dL (6.3-8.2)
[2024-08-22 12:14] VITALS: BP 107/70; PULSE 66; RESP 18
== END 2024-08-22 12:14 | disposition home or self-care (01) ==
LOC: EC 09:41
DX: G47.30 Sleep apnea, unspecified (principal); F17.200 Nicotine dependence, unspecified, uncomplicated; Z91.040 Latex allergy status
CPT/HCPCS: 36415; 80053; 84443; 84484; 85025; 99284; 96374; J1885

== ENCOUNTER 2024-08-23 18:31 | Emergency (ER) | payer OTHER ==
--- NOTE | 2024-08-23 18:54 | ED ---
Chest Pain HPI - General Chief Complaint: Chest Pain Stated Complaint: anxiety/chest pain Time Seen by Provider: 08/23/24 18:37 Source: patient Mode of arrival: EMS Limitations: no limitations - History of Present Illness Initial Comments: This patient is a 24-year-old man who presents with a constellation of symptoms that had come on tonight. Patient does acknowledge that he has had other episodes of this in the past going back for months now. He had been seen here previously and was given hydroxyzine and states that he took that but it has not done anything. The patient is complaining of feeling very anxious. He is having chest pain and feels like he is having a hard time catching his breath. Patient indicates that the pain is bilateral upper chest. He describes as tight with no worsening or relieving factors. Patient complains of having perioral numbness and tingling. Also some tingling to the extremities bilaterally. MD Complaint: chest pain, other -: minutes(s) Onset: during rest Pain Location: left chest, right chest Pain Radiation: none Severity: moderate Quality: tightness Consistency: constant Improves With: nothing Worsens With: nothing Anginal Symptoms: dyspnea, sense of impending doom Treatments Prior to Arrival: other (Hydroxyzine) - Related Data Previous Rx's Medication Instructions Recorded Cyclobenzaprine [Flexeril] 5 mg PO HS PRN #10 tab 08/14/22 Ibuprofen [Motrin] 800 mg PO Q8H PRN #30 tab 08/14/22 Lidocaine 5% Patch [Lidoderm 5% 1 patch TOPICAL DAILY PRN #7 patch 08/14/22 Patch] hydrOXYzine HCL [Atarax] 25 mg PO BID PRN #28 tab 08/14/22 Sertraline HCl [Zoloft] 50 mg PO DAILY #20 tab 08/23/24 Allergies Allergy/AdvReac Type Severity Reaction Status Date / Time latex Allergy Mild Rash/Hives Verified 08/23/24 18:46 Review of Systems ROS Statement: Those systems with pertinent positive or pertinent negative responses have been documented in the HPI. ROS Other: All systems not noted in ROS Statement are negative. Constitutional: Denies: fever, chills, weakness Eyes: Denies: vision change Respiratory: Reports: dyspnea. Denies: cough, wheezes, hemoptysis Cardiovascular: Reports: chest pain. Denies: palpitations, orthopnea, edema, syncope Gastrointestinal: Denies: abdominal pain, nausea, vomiting, diarrhea Genitourinary: Denies: dysuria, hematuria Musculoskeletal: Denies: back pain Skin: Denies: rash Neurological: Reports: paresthesias. Denies: headache, weakness, numbness, confusion EKG Findings - EKG Results: EKG: interpreted by ERMD, sinus rhythm (Rate 85 bpm), normal axis, normal QRS, normal ST/T Past Medical History Additional Past Medical History / Comment(s): Metabolic hx History of Any Multi-Drug Resistant Organisms: None Reported Past Surgical History: No Surgical Hx Reported Past Psychological History: No Psychological Hx Reported Smoking Status: Current every day smoker Past Alcohol Use History: Occasional Past Drug Use History: None Reported General Exam Limitations: no limitations General appearance: alert, in no apparent distress, anxious Head exam: Present: atraumatic, normocephalic, normal inspection Eye exam: Present: normal appearance. Absent: scleral icterus, conjunctival injection ENT exam: Present: normal oropharynx Neck exam: Present: normal inspection Respiratory exam: Present: normal lung sounds bilaterally. Absent: respiratory distress, wheezes, rales, rhonchi, stridor, accessory muscle use Cardiovascular Exam: Present: regular rate, normal rhythm, normal heart sounds. Absent: systolic murmur, diastolic murmur, rubs, gallop GI/Abdominal exam: Present: soft. Absent: distended, tenderness, guarding, rebound, rigid, mass Extremities exam: Present: normal inspection, normal capillary refill. Absent: pedal edema, calf tenderness Back exam: Present: normal inspection. Absent: CVA tenderness (R), CVA tenderness (L) Neurological exam: Present: alert Skin exam: Present: warm, dry, intact, normal color. Absent: rash Course Vital Signs 08/23/24 08/23/24 08/23/24 18:37 19:35 21:00 Temperature 98.2 F 98.2 F Pulse Rate 86 76 66 Respiratory 22 22 18 Rate Blood Pressure 148/99 131/84 140/89 O2 Sat by Pulse 98 99 99 Oximetry 08/23/24 08/23/24 22:00 23:27 Temperature 97.5 F L Pulse Rate 64 61 Respiratory 15 16 Rate Blood Pressure 133/88 122/97 O2 Sat by Pulse 96 96 Oximetry Chest Pain MDM - MDM The patient had chest x-ray that I interpreted as negative for acute infiltrate, pneumothorax, congestive heart failure Was pt. sent in by a medical professional or institution (, SHAYNA, SENIOR DIRECTOR OF STRATEGY, urgent care, hospital, or jail...) When possible be specific @ -[No] Did you speak to anyone other than the patient for history (EMS, parent, family, police, friend...)? What history was obtained from this source @ -[No] Did you review nursing and triage notes (agree or disagree)? Why? @ -[I reviewed and agree with nursing and triage notes] Were old charts reviewed (outside hosp., previous admission, EMS record, old EKG, old radiological studies, urgent care reports/EKG's, jail records)? Report findings @ -[No old charts were reviewed] Differential Diagnosis (chest pain, altered mental status, abdominal pain women, abdominal pain men, vaginal bleeding, weakness, fever, dyspnea, syncope, headache, dizziness, GI bleed, back pain, seizure, CVA, palpatations, mental health, musculoskeletal)? @ -[Differential Chest Pain: Stable Angina, Unstable Angina, STEMI, NSTEMI Aortic Dissection, Pneumothorax, Musculoskeletal, Esophageal Spasm GERD, Cholecystitis, Pancreatitis, Zoster, this is not meant to be an all-inclusive list. EKG interpreted by me (3pts min.). @ -[I interpreted as above] X-rays interpreted by me (1pt min.). @ -[ I interpreted as above CT interpreted by me (1pt min.). @ -[None done] U/S interpreted by me (1pt. min.). @ -[None done] What testing was considered but not performed or refused? (CT, X-rays, U/S, labs)? Why? @ -[None] What meds were considered but not given or refused? Why? @ -[None] Did you discuss the management of the patient with other professionals (professionals i.e. SHAYNA Chavez, SENIOR DIRECTOR OF STRATEGY, lab, RT, psych nurse, social service assistant, ear machine operator, teacher, tourist information officer, complex case manager)? Give summary @ -[No] Was smoking cessation discussed for >3mins.? @ -[No] Was critical care preformed (if so, how long)? @ -[No] Were there social determinants of health that impacted care today? How? (Homelessness, low income, unemployed, alcoholism, drug addiction, transportation, low edu. Level, literacy, decrease access to med. care, [facility]pc, rehab)? @ -[No] Was there de-escalation of care discussed even if they declined (Discuss DNR or withdrawal of care, Hospice)? DNR status @ -[No] What co-morbidities impacted this encounter? (DM, HTN, Smoking, COPD, CAD, C ancer, CVA, ARF, Chemo, Hep., AIDS, mental health diagnosis, sleep apnea, morbid obesity)? @ -[None] Was patient admitted / discharged? Hospital course, mention meds given and route, prescriptions, significant lab abnormalities, going to OR and other pertinent info. @ -[This patient is a 24-year-old man presenting with acute anxiety and also chest pain. The patient's cardiac workup is unremarkable. He has responded well to treatment and at this point stable to have further evaluation and treatment as outpatient. Discussed further follow-up as well as return parameters. Undiagnosed new problem with uncertain prognosis? @ -[No] Drug Therapy requiring intensive monitoring for toxicity (Heparin, Nitro, Insulin, Cardizem)? @ -[No] Were any procedures done? @ -[No] Diagnosis/symptom? @ -[acute anxiety acute chest pain Acute, or Chronic, or Acute on Chronic? @ -[acute Uncomplicated (without systemic symptoms) or Complicated (systemic symptoms)? @ -[uncomplicated Side effects of treatment? @ -[No] Exacerbation, Progression, or Severe Exacerbation? @ -[No] Poses a threat to life or bodily function? How? (Chest pain, [place], [place], pneumonia, PE, COPD, DKA, ARF, appy, cholecystitis, CVA, Diverticulitis, Homicidal, Suicidal, threat to staff... and all critical care pts) @ -[No] All treatments are based on ideal body weight as in ED triage Disposition Clinical Impression: Chest pain, Anxiety Disposition: HOME SELF-CARE Condition: Good Instructions (If sedation given, give patient instructions): Chest Pain (ED), Anxiety (ED) Prescriptions: Sertraline HCl [Zoloft] 50 mg PO DAILY #20 tab Is patient prescribed a controlled substance at d/c from ED?: No Referrals: Prieto Sykes DO [Primary Care Provider] - 1-2 days Otoniel Carrillo MD [STAFF PHYSICIAN] - 1-2 days
[2024-08-23 20:15] LABS: Basophils % (A) 1 %; Eosinophils # (A) 0.1 k/uL (0-0.7); Eosinophils % (A) 1 %; HCT 44.5 % (39.0-53.0); HGB 15.6 gm/dL (13.0-17.5); Lymphocytes # (A) 1.3 k/uL (1.0-4.8); Lymphocytes % (A) 16 %; MCH 29.5 pg (25.0-35.0); MCHC 35.1 g/dL (31.0-37.0); Mean Platelet Volume 8.3; Monocytes # (A) 0.4 k/uL (0-1.0); Monocytes % (A) 5 %; Neutrophils # (A) 5.9 k/uL (1.3-7.7); Neutrophils % (A) 76 %; Platelet Count 248 k/uL (150-450); RBC 5.29 m/uL (4.30-5.90); RDW 12.3 % (11.5-15.5); WBC 7.7 k/uL (3.8-10.6)
--- NOTE | 2024-08-23 20:19 | XR ---
EXAMINATION TYPE: XR chest 2V DATE OF EXAM: 08/23/2024 8:01 PM COMPARISON: Chest radiographs from 06/07/2024 CLINICAL INDICATION: Male, 24 years old with history of Chest Pain; TECHNIQUE: XR chest 2V Frontal and lateral views of the chest. FINDINGS: Lungs/Pleura: There is no evidence of pleural effusion, focal consolidation, or pneumothorax. Pulmonary vascularity: Unremarkable. Heart/mediastinum: Cardiomediastinal silhouette is unremarkable. Musculoskeletal: No acute osseous pathology. IMPRESSION: No acute cardiopulmonary disease/process. [facility], , 08/23/2024 8:16 PM
[2024-08-23 20:27] LABS: ALT 29 U/L (4-49); AST 27 U/L (17-59); African American GFR (CKD) >90 (>60 ml/min/1.73 sqM); Albumin 4.9 g/dL (3.5-5.0); Alkaline Phosphatase 114 U/L (38-126); Anion Gap 14 mmol/L; Blood Urea Nitrogen 12 mg/dL (9-20); Carbon Dioxide 20 mmol/L (22-30); Chloride 105 mmol/L (98-107); Glucose 119 mg/dL (74-99); Magnesium 1.9 mg/dL (1.6-2.3); Non-African American GFR(CKD) >90 (>60 ml/min/1.73 sqM); Potassium 3.8 mmol/L (3.5-5.1); Sodium 139 mmol/L (137-145); Total Bilirubin 0.4 mg/dL (0.2-1.3); Total Protein 8.1 g/dL (6.3-8.2)
[2024-08-23 20:29] LABS: Partial Thromboplastin Time 21.9 sec (22.0-30.0); Prothrombin Time 11.1 sec (10.0-12.5)
[2024-08-23] MEDS: SERTRALINE 50 MG TAB PO STA (22:14)
[2024-08-23] MEDS: ACETAMINOPHEN TAB 325 MG TAB PO STA (23:24)
[2024-08-23 23:39] VITALS: BP 122/97; PULSE 61; RESP 16; TEMP 97.5
== END 2024-08-23 23:43 | disposition home or self-care (01) ==
LOC: EC 18:31
DX: R07.89 Other chest pain (principal); F41.9 Anxiety disorder, unspecified; F17.200 Nicotine dependence, unspecified, uncomplicated; Z91.040 Latex allergy status
CPT/HCPCS: 36415; 71046; 80053; 83735; 84484; 85025; 85379; 85610; 85730; 93005; 99285

== ENCOUNTER → 2024-11-04 | Outpatient (CLI) | payer OTHER ==
--- NOTE | 2024-11-04 22:01 | MR ---
INDICATION: Patient age:Male; 24 years old; Reason for study: G93.2; PHH. COMPARISON: CT brain 10/29/2024, 08/13/2022. TECHNIQUE: Multi planar, multi sequence imaging was performed through the brain without the administr ation of intravenous contrast. FINDINGS: The smith-white junctions, ventricular system, basal cisterns appear unremarkable. Age-appropriate cer ebral parenchymal volume. Diffusion-weighted imaging shows no evidence of restricted diffusion to sug gest acute/subacute infarct. Intracranial arterial flow voids are maintained. Midline structures show no abnormality. No FLAIR signal abnormalities.. The susceptibility weighted images do not reveal any evidence for micro-hemorrhage. The bone marrow signal is within normal limits. The paranasal sinuses and globes are unremarkable. N o optic nerve sheet distention. No postsurgical flattening. No optic nerve tortuosity. No evidence fo r papilledema. No empty sella morphology. No cerebellar ectopia. IMPRESSION: No evidence of intracranial mass or acute/subacute infarct. No MRI evidence for idiopathic intracrani al hypertension. [facility], , 11/04/2024 9:59 PM
== END | disposition home or self-care (01) ==
LOC: RADMRIMAIN 20:30
PROVIDERS: ATTEND Ophthalmology
DX: G93.2 Benign intracranial hypertension (principal)
CPT/HCPCS: 70551

== ENCOUNTER → 2024-11-12 | Outpatient (CLI) | payer OTHER ==
[2024-11-12 14:46] VITALS: BP 111/78; PULSE 76; RESP 16; TEMP 98.1
--- NOTE | 2024-11-12 20:24 | P.SLEEP ---
History of Present Illness H&P Date: 11/12/24 Chief Complaint: CARLIN A 24-year-old male patient, coming into the sleep center accompanied by his mother with complaints of excessive fatigue and sleepiness. The patient used to live in [place] and few years back, his family relocated to [facility]. The patient is currently living at home with his family. 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 His sleep schedule is very irregular. He goes to bed between 11 PM and 2:30 AM in the morning. At night, he watches television, plays video games and he also does oil paint art drawing and once he feels exhausted, he goes to bed. He does wake up various times and his wake up time largely depends on the time when he goes to sleep. At times, he oversleeps and he spends around 10 to 12 hours in bed and is quite difficult to arouse him in the morning. During the day, he feels tired and fatigued and sleepy. He has a mild snore. Denies waking up choking or gasping for air. No substance abuse. No alcoholism. No smoking. Current Waterloo score is at 8. No sleep paralysis. No hallucinations. No cataplexy. No history of any motor vehicle accidents because of feeling drowsy or sleepy. He sleeps on his side. He has gained weight steadily over the past 10 years and he has accumulated a total of 40 pounds weight gain over the past 10 years. No major comorbidities. Does not take any medications. He has anxiety. No depression. No claustrophobia. Review of Systems Constitutional: Reports daytime sleepiness, Reports fatigue, Reports weight gain Eyes: denies as per HPI, denies blurred vision, denies bulging eye, denies decreased vision, denies diplopia, denies discharge, denies dry eye, denies irritation, denies itching, denies pain, denies photophobia, denies loss of peripheral vision, denies loss of vision, denies tunnel vision/blind spots Ears: deny: decreased hearing, ear discharge, earache, tinnitus Ears, nose, mouth and throat: Reports as per HPI Breasts: absent: as per HPI, gynecomastia Cardiovascular: Reports as per HPI Respiratory: Reports as per HPI Gastrointestinal: Reports as per HPI Genitourinary: Reports as per HPI Musculoskeletal: Reports as per HPI Musculoskeletal: absent: ankle pain, ankle stiffness, ankle swelling, as per HPI, elbow pain, elbow stiffness, elbow swelling, foot pain, foot stiffness, foot swelling, hand pain, hand stiffness, hand swelling, hip pain, hip stiffness, hip swelling, knee pain, knee stiffness, knee swelling, shoulder pain, shoulder stiffness, shoulder swelling, wrist pain, wrist stiffness, wrist swelling Integumentary: Reports as per HPI Neurological: Reports as per HPI Psychiatric: Reports as per HPI, Reports change in sleep habits, Reports hypersomnia, Reports sleep disturbances Endocrine: Reports fatigue Hematologic/Lymphatic: Reports as per HPI Allergic/Immunologic: Reports as per HPI Past Medical History Additional Past Medical History / Comment(s): Metabolic hx History of Any Multi-Drug Resistant Organisms: None Reported Past Surgical History: No Surgical Hx Reported Past Anesthesia/Blood Transfusion Reactions: No Reported Reaction Past Psychological History: Anxiety Additional Psychological History / Comment(s): panic attack Smoking Status: Current every day smoker Past Alcohol Use History: Occasional Past Drug Use History: None Reported - Past Family History Mother Family Medical History: Hypertension Additional Family Medical History / Comment(s): Insomnia Medications and Allergies Home Medications Medication Instructions Recorded Confirmed Type Cyclobenzaprine [Flexeril] 5 mg PO HS PRN #10 tab 08/14/22 Rx Ibuprofen [Motrin] 800 mg PO Q8H PRN #30 tab 08/14/22 Rx Lidocaine 5% Patch [Lidoderm 5% 1 patch TOPICAL DAILY PRN #7 patch 08/14/22 Rx Patch] hydrOXYzine HCL [Atarax] 25 mg PO BID PRN #28 tab 08/14/22 11/12/24 Rx Sertraline HCl [Zoloft] 50 mg PO DAILY #20 tab 08/23/24 Rx methylPREDNISolone [Medrol Dose 0 mg PO DIRECTED #1 packet 10/29/24 Rx Pack] Allergies Allergy/AdvReac Type Severity Reaction Status Date / Time latex Allergy Mild Rash/Hives Verified 10/29/24 18:16 Physical Exam Vitals: Vital Signs Temp Pulse Resp BP Pulse Ox 11/12/24 14:44 98.1 F 76 16 111/78 99 Intake and Output 11/12/24 11/12/24 11/12/24 06:59 14:59 22:59 Other: Weight 93.894 kg The patient appeared well nourished and normally developed. Vital signs as documented. Mallampati class IV Head exam is unremarkable. No scleral icterus or corneal arcus noted. Neck is without jugular venous distension, thyromegaly, or carotid bruits. Carotid upstrokes are brisk bilaterally. Lungs are clear to auscultation and percussion. Cardiac exam reveals the PMI to be normally sized and situated. Rhythm is regular. First and second heart sounds normal. No murmurs, rubs or gallops. Abdominal exam reveals normal bowel sounds, no masses, no organomegaly and no a ortic enlargement. Extremities are nonedematous and both femoral and pedal pulses are normal. Examination of the skin revealed no evidence of significant rashes, suspicious appearing nevi or other concerning lesions. Neurologically, the patient is awake and alert and the patient does not have any focal neurological deficit. Cranial nerves are essentially intact. Assessment and Plan Plan: Chronic hypersomnia/fatigue, Waterloo score of 8. Based on reported history, I believe the patient's symptoms are more related to sleep hygiene and scheduling related. The patient has maintained an irregular sleep schedule and he has an irregular sleep-wake cycle and this has been exacerbated by the fact that he is currently unemployed and is going to bed and waking up at various times, unable to maintain a regular schedule. Possibility of obstructive sleep apnea is considered to be less likely in this patient. Chronic anxiety Previous history of heatstroke Plan Importance of maintaining regular sleep schedule explained to the patient. The patient was asked to wake up 7 AM in the morning and go to bed sometime between 11 PM and midnight. Will implement good sleep hygiene measures Avoid television and video annemarie late in the evening Daily exercise Avoid naps during the day Maintain a sleep diary Will do a screening polysomnography to evaluate his sleep architecture. Overall suspicion for sleep apnea remains quite low in this patient. Further recommendations will be done based on results of the sleep study. Time with Patient: Greater than 30 Sleep Note - Sleep Data ESS Total: 8 - Sleep Note Sleep Note: Temperature: 98.1 F Pulse Rate: 76 Respiratory Rate: 16 Blood Pressure: 111/78 SpO2: 99 Height: 5 ft 7 in Weight: 93.894 kg BMI: Neck Circumference: 16
== END ==
LOC: 3 N SLEEP 13:57
PROVIDERS: ATTEND Internal Medicine Critical Care Medicine
DX: G47.10 Hypersomnia, unspecified (principal); F41.9 Anxiety disorder, unspecified; Z91.040 Latex allergy status; Z86.79 Personal history of other diseases of the circulatory system
CPT/HCPCS: 99211